=== PATIENT | male | born 1955 | race Caucasian/White ===

== ENCOUNTER 2024-01-07 14:22 | Inpatient (IN) | payer MEDICARE, OTHER, SELFPAY ==
[2024-01-02] VITALS (8 sets, daily range): BP systolic 104–159; BP diastolic 68–99; BMI 26.5
[2024-01-02 12:31] LABS: % Basophils 0.5 % (0-2); % Eosinophils 3.5 % (0-6); % Immature Granulocytes 0.2 % (0-0.5); % Lymphocytes 30.1 % (20.5-51.1); % Monocytes 10.1 % (1.7-9.3); % Neutrophils 55.6 % (42.2-75.2); Absolute Eosinophils 0.2 10^3/uL (0-0.7); Absolute Lymphocytes 1.8 10^3/uL (1.2-3.4); Absolute Monocytes 0.6 10^3/uL (0.1-0.6); Absolute Neutrophils 3.4 10^3/uL (1.4-6.5); Hematocrit 43.6 % (39.0-52.0); Hemoglobin 14.5 g/dL (13.0-18.0); Mean Corp Hgb Conc. 33.3 g/dL (33.0-37.0); Mean Corpuscular Hgb 30.1 pg (27.0-31.0); Mean Corpuscular Volume 90.6 fL (80.0-94.0); Mean Platelet Volume 10.2 fL (7.4-10.4); Nucleated Red Blood Cells % 0 % (-); Platelet Count 253 10^3/uL (130-400); Red Blood Cell Count 4.81 10^6/uL (4.70-6.10); Red Cell Dist. Width 12.8 % (11.5-14.5)
[2024-01-02 12:41] LABS: ALT (SGPT) 18 U/L (0-50); AST (SGOT) 21 U/L (17-59); Albumin 4.2 g/dl (3.5-5.0); Alkaline Phosphatase 54 U/L (38-126); Blood Urea Nitrogen 19 mg/dl (9-20); Calcium 9.7 mg/dl (8.4-10.2); Carbon Dioxide 30 mmol/L (22-30); Chloride 103 mmol/L (98-107); Glucose 122 mg/dl (70-99); Lipase 109 U/L (23-300); Potassium 4.6 mmol/L (3.5-5.1); Sodium 136 mmol/L (135-145); Total Bilirubin 0.7 mg/dl (0.2-1.3); eGFR > 60.00
[2024-01-02 12:52] LABS: Troponin I 0.028 ng/ml
--- NOTE | 2024-01-02 13:34 | ED.GENMED ---
History of Present Illness
General
Chief Complaint: Abdominal Symptoms
Source: patient
Exam Limitations: none
Time Seen by Provider: 01/02/24 11:26
Nursing documentation reviewed up to this point in time: agreed with
Travel History
Have you had any contact with someone who has COVID-19?: No
Do you have any symptoms of coronavirus? Fever > 100 degrees, chills, cough, shortness of breath, sore throat, loss of taste or smell, muscle aches, or headache?: No
History of Present Illness
History of Present Illness:
8-year-old male with history of wwh-pqwlhsr-navsvfvex diabetes, GERD for feeling of chest discomfort with exertion starting 1 week ago.
while mowing dc cappsn notice dhe got a pain in his chest felt like a pressure that required him to stop several times. He thinks he stopped a total of 7 times while he was mowing in order to recover. This is very unusual for him. Since then he
had another episode with walking that he had to stop 3 times because of a pressure in his chest associated with a few episodes of belching. Patient says he also had 1 last night at 1130, 3 hours after eating his dinner which is a small amount.
This happened at rest which was unusual and he was a little bit more concerned about that. Patient has not had any shortness of breath, pleuritic pain, fever, vomiting, black stool. Went to his family doctor and he was told he had a subtle
abnormality in his EKG and was sent here for evaluation. Patient has never had an endoscopy previously for his ongoing GERD symptoms, he says he has chronically had belching after meals but does not regularly take medications
Phy Exam
Physical Exam
Physical Exam:
GENERAL: Alert , in no apparent distress
EYE: pupils equal and reactive
NECK: Supple
ENT: o/p clr, mmm.
CARDIAC: Regular rate and rhythm .
LUNGS: Clear breath sounds bilaterally, no acute respiratory distress, no wheezes/rales/rhonchi
ABDOMEN: Soft, without focal tenderness, no r/g, no cvat, normal bowel sounds
NEUROLOGICAL: Alert and oriented, no focal neuro deficits
SKIN: Warm and dry, skin intact.
MUSCULOSKELETAL: No edema, well perfused. neg loreto's sign
PSYCH: Normal and appropriate interaction.
Course
Orders/Labs/Results
Orders:
Orders
01/02/24 10:59
EKG [Electrocardiogram (*1)] Urgent
Reason for Study: Abnormal EKG
01/02/24 11:00
EKG- Treatment ONCE
01/02/24 12:14
Complete Blood Count/With Diff Urgent
Comprehensive Metabolic Panel Urgent
Glycohemoglobin (HgbA1c) Urgent
Lipase Urgent
Troponin I Urgent
01/02/24 12:51
CR Chest - 2 Views Urgent
Comment:
Reason For Exam: chest pain
01/02/24 14:14
CARDIOLOGY CONSULT Urgent
Consulting Provider: Mariano Jacob
Was physician already notified: Yes
01/02/24 14:26
Aspirin Chewable [Low Strength Aspirin] 324 mg PO NOW STA
01/02/24 14:27
Add On- LAB Routine
Tests Added?: Hgba1c
01/02/24 14:32
Echo 2D MMode Color/Doppler Routine
Reason for Study: Chest pain
Abnormal Lab Results
01/02/24
12:14
Monocytes % 10.1 H %
(1.7-9.3)
Glucose 122 H mg/dl
(70-99)
01/02/24 12:14
01/02/24 12:14
Vital Signs
Initial and Last Documented VS:
Initial Vital Signs
Temp Pulse Resp BP Pulse Ox
98.1 F 75 18 159/99 98
01/02/24 11:11 01/02/24 11:11 01/02/24 11:11 01/02/24 11:11 01/02/24 11:11
Last Documented Vital Signs
Temp Pulse Resp BP Pulse Ox
98.1 F 71 18 123/80 98
01/02/24 11:11 01/02/24 14:00 01/02/24 14:00 01/02/24 14:00 01/02/24 11:11
MDM/Problems Addressed
Differential Diagnosis Includes:
gerd, acs, unstable angina
MDM/Problems Addressed:
68 y/o M with niddm, gerd
here with exretional chest disocmfort 1 wek ago and has had 2 other episodes of discomfrt, 1 with walking and the other last night at rest
he attributes to food intake, becuase he gets belchin as a symptom
but he has a change to his ekg that is subtle but t wave inversion
no pain currently
never seen gi
on exam well appearing
stable vitals
troponin was 0.02
d/w ed attending
recommended consult final cleaner
dr. jacob saw pt and will take pt to cardiac cath.
*Critical Care Note
Total Time (30-74mins, 75-104mins- exclusive of procedures): Not Applicable
ED Attending Note
-
Portions of this chart may have been created with voice recognition software.� Occasional wrong word or��sound alike� substitutions may have occurred due to the inherent limitations of voice recognition software.
Discharge Plan
Departure
Patient Disposition: Admit
Date of Disposition: 01/02/24
Time of Disposition: 14:48
Admit to: Telemetry
Presentation/result/management discussed w/ accepting MD/DO: Hospitalist
Condition: Fair
Covid-19: Not Applicable
Discharge Problem:
Angina of effort
Referrals:
Pauline Rangel PA-C [Family Provider] -
Interventions
Interventions:
*Risk Screen - Suicide Last Done: 01/02/24 11:15
*General Assessment Last Done: 01/02/24 11:15
*Neglect/Abuse Screening Last Done: 01/02/24 11:15
ED- Fall Risk Assessment Last Done: 01/02/24 12:22
OT-Prrmlg-Ejsnlvndmy Assessment Last Done: 01/02/24 12:22
Discharge Date and Time
Print Language: MALAWIAN
--- NOTE | 2024-01-02 14:18 | CON.CAR ---
Addendum entered and electronically signed by Mariano Lee MD 01/02/24 16:57:
Patient seen and examined in collaboration with B2B APPOINTMENT SETTER; agree with below.
-68-year-old male with hyperlipidemia and diabetes presenting with symptoms highly concerning for angina; the patient had to stop 7 times while fertilizing his lawn due to his symptoms that went away with rest and was brought about by exertion.
-Patient was also found to have new inferior T wave inversions on his EKG.
-Case discussed with interventional cardiology; patient will undergo cardiac catheterization today for definitive coronary assessment.
-Will be given full-dose aspirin and heparin bolus in the ER.
-Continue atorvastatin.
-Will need an echocardiogram this admission.
-Further recommendations will be based upon cardiac catheterization findings.
Original Note:
Consultation
Consultation Request
Date/Time Consultation Requested: 01/02/2024 14:15
Date/Time Consultation Performed: 01/02/2024 14:20
Requesting Provider: TOBI Mabry
Performing Provider: TOBI Figueroa for Dr. Lee
Reason for Consultation: Chest discomfort
Medical History
-
Chief Complaint: Chest discomfort
History of Present Illness:
Kaveh Lozano is a 68-year-old male with type 2 diabetes mellitus and dyslipidemia who presented to the emergency department after referral from PCP. He presented to the office of his PCP today to discuss ongoing indigestion. Last week he had to
stop fertilizing his lawn multiple times due to belching and a chest discomfort which she cannot describe. He reports having a history of ongoing digestive issues for 8 years. He has been actively trying to avoid spicy food, eating late, and
eating before workout. He normally exercises 3 times per week but feels more fatigued when he exercises in the evening and has belching and chest discomfort despite not eating before his workout. His indigestion symptoms are sometimes with
exertional activity such as walking up a flight of steps unloading the car. He feels like he needs to relax his breathing but does not feel particularly short of breath. At his PCP office he was found to have new T wave inversion and was referred
to the emergency department. He did have some indigestion symptoms at rest, most recently he was driving in his vehicle and attributed to [employer] he had for breakfast.
Past Medical History
Past Medical History: Hypercholesterolemia and NIDDM
Past Surgical History: Appendectomy and Orthopedic
Social History
Tobacco: Non-Smoker
Alcohol: None
Drug: None
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
Family History
Family History: Reviewed & Not Pertinent
Allergies / Home Medications
Allergy/AdvReac Type Severity Reaction Status Date / Time
No Known Allergies Allergy Unverified 01/02/24 11:11
Review of Systems
-
History Source: Patient
All other systems: Negative unless noted
Constitutional: No Symptoms
Respiratory: No Symptoms
Cardiac: Chest Pain
Abdomen/GI: Other (See HPI)
: No Symptoms
Physical Exam
Vital Signs
Temp Pulse Resp BP Pulse Ox
98.1 F 71 18 123/80 98
01/02/24 11:11 01/02/24 14:00 01/02/24 14:00 01/02/24 14:00 01/02/24 11:11
Lab Results
01/02/24 12:14
01/02/24 12:14
Troponin I 0.028 ng/ml 01/02/24 12:14
Physical Exam
General: Well Developed, Well Nourished, No Apparent Distress and Comfortable
HEENT: Normocephalic, Anicteric and Moist Mucous Membranes
Respiratory: Non Labored Respirations
Cardiac: S1/S2 and Regular Rhythm; Negative Peripheral Edema
Breast: Deferred by me
GI: Soft, Non Tender, Non Distended and Normal Bowel Sounds
Rectal: Deferred by Provider
Genito-urinary: No Costovertebral Tender
Musculoskeletal: No Clubbing, No Cyanosis and No Edema
Skin: Warm and Dry
Neuro: AO x 3
Hematologic/Lymphatic: No Lymphadenopathy
Psych: Calm
Impression / Plan
-
ACS
-Currently chest pain-free
-Troponin 0.028, trend
-Give ASA 324 mg chewable tablet x 1 now
-HbA1c, fasting lipid panel a.m.
-Echocardiogram
-Cardiac catheterization given chest discomfort and new T wave inversions
Dyslipidemia, most recent LDL 93 at its peak was 147 in 2020, increase rosuvastatin to 20 mg daily
Type 2 diabetes mellitus, HgbA1c 6.6% 09/2023, update, hold metformin for cardiac catheterization
Data Reviewed
-
EKG: Report Reviewed by me (Sinus rhythm, nonspecific ST abnormality, new T wave inversion in inferior leads, rate 70)
Labs: Labs Reviewed by me
Old Records: Reviewed
[2024-01-02] MEDS: LOW STRENGTH ASPIRIN 324 MG PO (14:43)
[2024-01-02 14:56] LABS: Glycohemoglobin (HgbA1c) 7.1 % (4.0-5.6)
--- NOTE | 2024-01-02 15:05 | HPS.HSE ---
Family Physician
-
Family Physician: Pauline Rangel PA-C
Chief Complaint
-
Chest pain
History of Present Illness
68M NIDDM HLD referred to ED by PCP d/t EKG changes, worsening chest discomfort, exercise intolerance, fatigue, progressive for the past few weeks. Chest discomfort was associate with belching and was attributed to indigestion, of which patient has
had for years. However symptoms acutely worsen over the past few weeks with progressive limitations on patients' routine activities including exercise, yard work, walking up a flight of stairs while unloading his car. PCP evaluated with EKG and
noted T wave inversions different from patient's prior EKG prompting referral to ED. In ED patient was asymptomatic vital signs stable chest pain free at rest with initial troponin wnl. Repeated EKG noted T wave inversions in inferior leads.
Cardio evaluated and cath was advised. The procedure would ultimately find multivessel disease.
Medical History
Past Medical History
Past Medical History: Reports Other (as above)
Past Surgical History: Reports Other
Additional Past Surgical History:
Appendectomy Orthopedic
Social History
Tobacco: Non-smoker
Alcohol: None
Drug: None
Personal:
Living: With Family
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
Family History
Family History: CAD (Hx heart disease late in 70s and 80s, Father and Grandfather on his mother's side respectively) and Other (Endorses family history of heart disease, father with valve replacement in his 70s and grandfather on his mother side who
had heart attack in his 80s. )
Allergies / Home Medications
Allergies reflects when Allergies were last updated in [facility].
Home Medications with original date entered in [facility]
Allergy/Medication List:
Allergies
Allergy/AdvReac Type Severity Reaction Status Date / Time
amoxicillin [From Augmentin] Allergy Unknown Verified 01/02/24 15:05
clavulanic acid Allergy Unknown Verified 01/02/24 15:05
[From Augmentin]
Home Medications
metformin 500 mg tablet 500 mg PO BIDWMEAL 01/02/24
rosuvastatin 5 mg tablet 5 mg PO Q72H 01/02/24
Review of Systems
-
A 12 point ROS was completed and negative except as noted: Yes
Constitutional: Reports Other (as below)
Physical Exam
Vital Signs
Vital Signs
Temp Pulse Resp BP Pulse Ox
98.1 F 71 17 146/97 98
01/02/24 11:11 01/02/24 14:45 01/02/24 14:45 01/02/24 14:40 01/02/24 11:11
Physical Exam
General: Other (as below)
Laboratory Results
-
01/02/24 12:14
01/02/24 12:14
Laboratory Results
Total Bilirubin 0.7 mg/dl (0.2-1.3) 01/02/24 12:14
AST 21 U/L (17-59) 01/02/24 12:14
ALT 18 U/L (0-50) 01/02/24 12:14
Alkaline Phosphatase 54 U/L (38-126) 01/02/24 12:14
Troponin I 0.028 ng/ml 01/02/24 12:14
Lipase 109 U/L (23-300) 01/02/24 12:14
Impression/Plan
-
ROS
General: Denies fever chills night sweats unexpected weight loss
Neuro: Denies seizure shaking loss of consciousness dizziness vertigo
Psych: denies depression hallucinations confusion manic episodes
Endocrine: Denies polyuria polydipsia polyphagia heat/cold intolerance
HEENT: Denies blindness visual disturbances epistaxis
Pulmonary: denies coughing hemoptysis sneezing sob dyspnea on exertion
Cardiovascular: reports chest discomfort with associate belching palpitations leg swelling
Hematology: denies signs symptoms of anemia easy bruising/bleeding
Gastrointestinal: denies nausea vomiting diarrhea constipation hematemesis hematochezia melena
Genito-Urinary: denies retention incontinence dysuria
Musculoskeletal: denies joint pain weakness
Dermatology: denies rash laceration bruising
Physical Exam
General: No pallor, cyanosis, or jaundice.
HEENT: Throat clear. PERRLA Normocephalic atraumatic
NECK: Supple. No JVD Carotid Bruits
RESPIRATORY: Lungs clear to auscultation. No crackles wheezes stridor
CVS: S1, S2 normal. RRR. No murmur, rub or gallop.
ABDOMEN: Soft, non-tender. No distension. BS+/normal.
EXTREMITIES: No peripheral cyanosis or edema.
TAKER DOWN: AOx3. No focal deficits.
IMPRESSION:
66M NiDDM HLD p/w atypical chest pain exercise intolerance progressive past few weeks found to have multi-vessel disease on cath.
PLAN:
#Atypical chest pain s/p cath 01/01 notes multi-vessel CAD
Cardio eval appreciated
monitoring and evaluation advisor
ASA hep gtt as per cardio
CTS eval
#DM
metformin on hold d/t cath
insulin low dose sliding scale
#HLD
statin
dvt ppx hep gtt
meds reconciled and resumed as appropriate
Full Code
I spent a total of 80 minutes with the patient or on the floor. More than 50% of this time involved counseling and coordination of care.
--- NOTE | 2024-01-02 16:13 | ITS.CL.CATH ---
Client Architect - Catheterization
Cardiac Catheterization
Procedure Report:
CARDIAC CATHETERIZATION REPORT
Date of Procedure: 01/02/2024
Referring: Mariano Lee MD
Indication: Unstable angina
HEMODYNAMIC DATA
AO: 108/72
LV: 108/14
LEFT VENTRICULOGRAPHY: Mild inferobasal hypokinesis with EF 52%
CORONARY ANGIOGRAPHY
Dominance: Right
Left Main: Severely calcified without focal stenosis
LAD: Eccentric 70-80% proximal LAD stenosis. There is calcific 50% stenosis spanning the takeoff of the large second septal feather drying machine operator which has 70% ostial stenosis. The remainder of the LAD proper has mild luminal disease. D1 is large and
occluded at its origin-this vessel fills retrograde. D2 is large with 60% ostial stenosis.
Circumflex: The circumflex is occluded proximally distal to the origin of high rising small OM1 and OM 2 branches. OM 3 is a large bifurcating vessel which fills retrograde via left to left collaterals.
RCA: The RCA is severely calcified and proximally occluded. The distal vessel fills via a combination of qjsz-qd-okzdp collaterals and bridging collaterals from the RCA. There appears to be a sizable PDA and several posterolateral branches
supplied by these collaterals
Closure Device: None-the procedure was performed via the right radial artery. The Delvin's test was normal prior to the procedure.
Radiation (mGy): 377
DAP (cm2.Gy): 33.4
Fluoroscopy time: 3.3 minutes
CONCLUSIONS
1: Mild inferobasal hypokinesis with EF 52%
2: Severe calcific triple-vessel CAD as described
3. There is no option for percutaneous revascularization here. Complete revascularization may be challenging but would include grafting the LAD, large D1 and D2, OM 3, RPDA and RPL. The PDA is not well-visualized and may or may not be an
acceptable surgical target. One of the large posterolateral branches will certainly be a surgical target
Copy to: Mariano Lee MD, Pauline Rangel PA-C
Flex Lucio MD, FORMERLY [facility], [facility]
[2024-01-02] MEDS: NSS 1000 IV (16:29)
--- NOTE | 2024-01-02 16:45 | CM ---
CM following for DC planning needs.
Pt. resides in a private, 2 story home w/ spouse.
Functionally, patient indep. prior to admission w/ ADLs, mobility without use of any assisted device.
CM to follow for DC planning needs.
--- NOTE | 2024-01-02 17:42 | CONSULT.CT ---
Consultation
-
Date/Time Consultation Requested: 01/01
Date/Time Consultation Performed: 01/01
Requesting Provider: Dr Lucio
Performing Provider: Emiliana Montano for Dr Fernando Mcdaniel
Reason for Consultation: CABG evaluation
Patient History
Physicians
Family Physician: Pauline Rangel
Outpatient Group Art Supervisor: none prior to admission
Inpatient Group Art Supervisor: DR. Lucio
History of Present Illness
79 year old male with history of T2DM x 8 years and hyperlipidemia in usual active state of health (exercising 4 times/week), noted needing to stop and belch during stationary bike riding over past several years which he attributed to
digestive issues. Yesterday, patient had to stop 7 times while fertilizing his lawn due to vague chest tightness and belching that resolved with rest. Patient also recounts an episode last night, which occurred 3 hours after eating. Went to PCP
today and ECG noted new inferior T wave inversions. Patient told to go to the ED for further evaluation. Initial troponin was 0.028. TTE reported normal EF with cath revealing multivessel disease. Patien tis anxious to have surgery so he can attend
his daughter's wedding in [facility] on 01/25/24.
TTE:
EF 55-60%. No /AI. tr MR, mild TR
Cardiac Cath (via R radial): report pending
Past Medical History
Past Medical History: BPH, Hypercholesterolemia and NIDDM (x 8 years on oral meds)
Past Surgical History
Past Surgical History: Appendectomy and Other (cervical fusion, benign LUE lipoma removal)
Family History
Mother: at Age
Father: at Age (83-had valve surgery)
Family Medical History: CAD
Social History
Alcohol: None
Drug: None
Tobacco: Non-Smoker
Personal:
Living: With Spouse
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
Allergies
Allergy/AdvReac Type Severity Reaction Status Date / Time
amoxicillin [From Augmentin] Allergy Unknown Verified 01/02/24 15:05
clavulanic acid Allergy Unknown Verified 01/02/24 15:05
[From Augmentin]
Home Medications
�Medication �Instructions �Recorded �Confirmed �Type
metformin 500 mg tablet 500 mg PO BIDWMEAL 01/02/24 01/02/24 History
rosuvastatin 5 mg tablet 5 mg PO Q72H 01/02/24 01/02/24 History
Review of Systems
-
History Source: Patient
General: Reports No Symptoms
HEENT: Reports No Symptoms
Respiratory: Reports No Symptoms
Cardiac: Reports Chest Pain
Abdomen/GI: Reports No Symptoms
: Reports Nocturia
Musculoskeletal: Reports No Symptoms
Skin: Reports No Symptoms
Neurological: Reports No Symptoms
Vascular: Reports No Symptoms
Physical Exam
Vital Signs
Temp 98.1 F 01/02/24 11:11
Temp route: Oral 01/02/24 11:11
Pulse 66 01/02/24 17:30
Resp Rate 19 01/02/24 15:15
Blood pressure 114/68 01/02/24 17:28
MAP (cuff-Shayla Monitor) 81 01/02/24 17:28
SaO2 97 01/02/24 17:28
Oxygen Mode of Delivery Room air 01/02/24 11:11
Acceptable pain level during hospitalization? 0 01/02/24 11:11
Can the patient verbally communicate their pain? Yes 01/02/24 11:11
Actual Weight 96.1 kg 01/02/24 14:39
Body Mass Index (BMI) 26.5 01/02/24 14:39
Labs
01/02/24 12:14
01/02/24 12:14
Hemoglobin A1c 7.1 % (4.0-5.6) H 01/02/24 12:14
Troponin I 0.028 ng/ml 01/02/24 12:14
Exam
General: Well Developed, Well Nourished and No Apparent Distress
HEENT: Normocephalic, Anicteric, Moist Mucous Membranes and PERRLA
Neck: Trachea Midline
Respiratory: Clear
Cardiac: S1/S2 and Regular Rhythm
GI: Soft, Non Tender, Non Distended and Normal Bowel Sounds
Rectal: Deferred by Provider
Skin: Warm and Dry
Neuro: AO x 3, No Motor Deficits and CN X-XII Intact
Extremities: Pulses (+2/4 DP pulses B/L)
Lymph: No Lymphadenopathy
Psych: Calm
Assessment / Plan
-
68 year old male with multivessel CAD and preserved LV function
- surgeon to review imaging and discuss surgical option with patient
- plan for CABG with Dr Mcdaniel on Saturday 01/06
- diagnostic work-up in process
- DC IV Heparin on -call to OR
Data Reviewed
-
EKG: Report Reviewed by me and Discussed with Physician
Marketing Sales Supervisor: Report Reviewed by me and Discussed with Physician
Echo: Report Reviewed by me and Discussed with Physician
Labs: Labs Reviewed by me and Discussed with Physician
[2024-01-02 18:38] LABS: Glucose - Point of Care 100 mg/dl (70-99)
[2024-01-02] MEDS: LIPITOR 40 MG PO (19:06)
[2024-01-02] MEDS: NITRO-BID 0.5 INCH TOPICAL ×2 (19:08→23:05)
[2024-01-02] MEDS: LOPRESSOR 12.5 MG PO (19:49)
[2024-01-02] MEDS: HEPARIN 25000 UNITS/250 ML IV (21:01)
[2024-01-02 21:03] LABS: Glucose - Point of Care 159 mg/dl (70-99)
[2024-01-03] VITALS (7 sets, daily range): BP systolic 90–119; BP diastolic 54–72; BMI 25.8
[2024-01-03 03:18] LABS: Hematocrit 41.2 % (39.0-52.0); Hemoglobin 14.3 g/dL (13.0-18.0); Mean Corp Hgb Conc. 34.7 g/dL (33.0-37.0); Mean Corpuscular Volume 89.4 fL (80.0-94.0); Mean Platelet Volume 10.1 fL (7.4-10.4); Platelet Count 237 10^3/uL (130-400); Red Blood Cell Count 4.61 10^6/uL (4.70-6.10); Red Cell Dist. Width 12.9 % (11.5-14.5); White Blood Cell Count 9.1 10^3/uL (4.8-10.8)
[2024-01-03 03:31] LABS: APTT 38.7 Sec (23.4-35.0); INR 1.12; PT 14.3 Sec (11.4-14.6)
[2024-01-03 03:35] LABS: ALT (SGPT) 15 U/L (0-50); AST (SGOT) 21 U/L (17-59); Alkaline Phosphatase 55 U/L (38-126); Blood Urea Nitrogen 17 mg/dl (9-20); Calcium 9.4 mg/dl (8.4-10.2); Carbon Dioxide 26 mmol/L (22-30); Chloride 104 mmol/L (98-107); Direct Bilirubin 0.3 mg/dl (0.0-0.4); Estimated Creatinine Clearance 109 ml/min; Glucose 122 mg/dl (70-99); Magnesium 1.9 mg/dl (1.6-2.3); Potassium 4.1 mmol/L (3.5-5.1); Sodium 136 mmol/L (135-145); Total Protein 6.5 g/dl (6.3-8.2); eGFR > 60.00
[2024-01-03] MEDS: NITRO-BID 0.5 INCH TOPICAL ×3 (05:59→19:24)
--- NOTE | 2024-01-03 06:40 | W.PN.HOSP.TC ---
Today's Communication/Plan
-
Cont ASA hep gtt
low dose sliding scale
CABG preparations pre-op work up as per CTS
Assessment / Plan
Assessment / Plan
Physical Exam
General: No pallor, cyanosis, or jaundice.
HEENT: Throat clear. PERRLA Normocephalic atraumatic
NECK: Supple. No JVD Carotid Bruits
RESPIRATORY: Lungs clear to auscultation. No crackles wheezes stridor
CVS: S1, S2 normal. RRR. No murmur, rub or gallop.
ABDOMEN: Soft, non-tender. No distension. BS+/normal.
EXTREMITIES: No peripheral cyanosis or edema.
ALARM MECHANISM ADJUSTER: AOx3. No focal deficits.
IMPRESSION:
66M NiDDM HLD p/w atypical chest pain exercise intolerance progressive past few weeks found to have multi-vessel disease on cath.
PLAN:
#Atypical chest pain s/p cath 01/01 notes multi-vessel CAD
Cardio eval appreciated
lockstitch collar setter
ASA atorvastatin hep gtt metoprolol nitrobid as per cardio
CTS eval appreciated plan for CABG w/ Dr Mcdaniel Wed 01/06
ECHO appreciated EF 55-60% possible basal inferior/inferolateral hypokineses, aortic sclerosis w/ stenosis, mildly dilated aortic root
#DM
metformin on hold d/t cath
insulin low dose sliding scale
#HLD
statin
dvt ppx hep gtt
Full Code
I spent a total of 50 minutes with the patient or on the floor. More than 50% of this time involved counseling and coordination of care.
Anticipated Discharge: > 48 hours
Subjective/Interval History
-
Date of Service: January 03, 2024
No acute distress reports overall feeling well. Denies new acute issues at this time.
Objective Data
-
Labs:
Laboratory Results
01/03/24 01/03/24 01/03/24
03:08 03:08 03:08
WBC 9.1
Hgb 14.3
Hct 41.2
Plt Count 237
PT Cancelled 14.3
INR Cancelled 1.12
APTT 38.7 H
Sodium 136
Potassium 4.1
Chloride 104
Carbon Dioxide 26
BUN 17
Creatinine 0.8
Glucose 122 H
Calcium 9.4
Total Bilirubin 1.0
AST 21
ALT 15
Alkaline Phosphatase 55
01/03/24
10:00
WBC
Hgb
Hct
Plt Count
PT
INR
APTT Pending
Sodium
Potassium
Chloride
Carbon Dioxide
BUN
Creatinine
Glucose
Calcium
Total Bilirubin
AST
ALT
Alkaline Phosphatase
Vital Signs:
Vital Signs
Temp Pulse Resp BP Pulse Ox
97.8 F 66 16 109/54 96
01/03/24 03:53 01/03/24 05:59 01/03/24 03:53 01/03/24 05:59 01/02/24 19:38
I&O
01/01/24 01/02/24 01/03/24
06:59 06:59 06:59
Intake Total 432 / 432
Output Total 450 / 450
Balance -18 / -18
[2024-01-03 07:56] LABS: Glucose - Point of Care 130 mg/dl (70-99)
[2024-01-03 09:32] LABS: HDL Cholesterol 42 mg/dl; LDL Cholesterol, Calculated 81 mg/dl; Total Cholesterol 139 mg/dl (50-199); Triglyceride 80 mg/dl (10-149); Very Low Density Lipoprotein 16 mg/dl (0-30)
[2024-01-03] MEDS: LOPRESSOR 12.5 MG PO ×2 (10:11→19:59)
[2024-01-03] MEDS: LOW STRENGTH ASPIRIN 81 MG PO (10:11)
[2024-01-03 10:44] LABS: APTT 45.5 Sec (23.4-35.0)
[2024-01-03 11:52] LABS: Glucose - Point of Care 124 mg/dl (70-99)
--- NOTE | 2024-01-03 13:59 | W.PN.CD ---
Today's Communication / Plan
-
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
-Echocardiogram yesterday revealed LVEF of 55-60%, with possible basal inferior/inferolateral hypokinesis and aortic sclerosis without stenosis.
-Continue aspirin, atorvastatin 40 mg daily, metoprolol tartrate, and heparin drip.
-Continue youth nutritional monitor.
Impression / Plan
-
ACS/CAD:
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
-Echocardiogram yesterday revealed LVEF of 55-60%, with possible basal inferior/inferolateral hypokinesis and aortic sclerosis without stenosis.
-Continue aspirin, atorvastatin 40 mg daily, metoprolol tartrate, and heparin drip.
-Continue youth nutritional monitor.
Dyslipidemia.
-LDL 81; continue statin as above.
Type 2 diabetes mellitus;
-Hemoglobin A1c is 7.1%.
-Management as per primary team.
Physical Exam
Vital Signs/Labs
Vital Signs
Temp Pulse Resp BP Pulse Ox
98.0 F 76 18 99/69 97
01/03/24 11:53 01/03/24 12:00 01/03/24 11:55 01/03/24 11:53 01/03/24 11:55
01/02/24 01/03/24 01/04/24
06:59 06:59 06:59
Actual Weight 96.1 kg 93.5 kg
01/03/24 03:08
01/03/24 03:08
PT 14.3 Sec (11.4-14.6) 01/03/24 03:08
PT Cancelled 01/03/24 03:08
INR 1.12 01/03/24 03:08
INR Cancelled 01/03/24 03:08
APTT 45.5 Sec (23.4-35.0) H 01/03/24 10:18
Magnesium 1.9 mg/dl (1.6-2.3) 01/03/24 03:08
Triglycerides 80 mg/dl (10-149) 01/03/24 03:08
LDL Cholesterol, Calc 81 mg/dl 01/03/24 03:08
VLDL Cholesterol, Calc 16 mg/dl (0-30) 01/03/24 03:08
HDL Cholesterol 42 mg/dl 01/03/24 03:08
LAB Results
01/02/24
12:14
Troponin I 0.028
Physical Exam
Constitutional: No acute distress and Comfortable
EENT: Anicteric
Cardiovascular: Rhythm & rate is regular, Pedal edema is absent, Systolic murmur absent and S1S2 is normal
Respiratory: Respiratory effort normal and Lungs clear to auscul.
GI: Soft and Non tender
Neuro/Psych: AO x 3
Other: Skin (Warm, dry, intact)
Data Reviewed
-
Date of Service: January 03, 2024
EKG: Tracing Personally Visualized and interpreted (Telemetry: Sinus rhythm)
Medical Tests (PFT, Pathology etc): Discussed with Patient
Labs: Labs Reviewed by me
[2024-01-03] MEDS: HEPARIN 25000 UNITS/250 ML IV (17:04)
[2024-01-03] MEDS: LIPITOR 40 MG PO (17:05)
[2024-01-03 18:09] LABS: Glucose - Point of Care 98 mg/dl (70-99)
[2024-01-03 19:15] LABS: APTT 55.2 Sec (23.4-35.0)
[2024-01-03 21:53] LABS: Glucose - Point of Care 151 mg/dl (70-99)
[2024-01-03 22:24] LABS: Hepatitis C Antibody Negative (Negative)
[2024-01-04 01:23] VITALS: BP 122/79
[2024-01-04] MEDS: NITRO-BID 0.5 INCH TOPICAL ×4 (01:25→17:11)
[2024-01-04 01:40] LABS: Hematocrit 40.6 % (39.0-52.0); Hemoglobin 14.3 g/dL (13.0-18.0); Mean Corp Hgb Conc. 35.2 g/dL (33.0-37.0); Mean Corpuscular Hgb 30.4 pg (27.0-31.0); Mean Corpuscular Volume 86.2 fL (80.0-94.0); Mean Platelet Volume 9.9 fL (7.4-10.4); Platelet Count 249 10^3/uL (130-400); Red Blood Cell Count 4.71 10^6/uL (4.70-6.10); Red Cell Dist. Width 12.9 % (11.5-14.5); White Blood Cell Count 8.5 10^3/uL (4.8-10.8)
[2024-01-04 01:53] LABS: APTT 89.7 Sec (23.4-35.0)
[2024-01-04 06:00] VITALS: BMI 25.8
[2024-01-04 06:14] VITALS: BP 110/52
--- NOTE | 2024-01-04 06:43 | W.PN.HOSP.TC ---
Today's Communication/Plan
-
Cont ASA hep gtt
low dose sliding scale
CABG preparations pre-op work up as per CTS
Assessment / Plan
Assessment / Plan
Physical Exam
General: No pallor, cyanosis, or jaundice.
HEENT: Throat clear. PERRLA Normocephalic atraumatic
NECK: Supple. No JVD Carotid Bruits
RESPIRATORY: Lungs clear to auscultation. No crackles wheezes stridor
CVS: S1, S2 normal. RRR. No murmur, rub or gallop.
ABDOMEN: Soft, non-tender. No distension. BS+/normal.
EXTREMITIES: No peripheral cyanosis or edema.
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 No focal deficits.
IMPRESSION:
66M NiDDM HLD p/w atypical chest pain exercise intolerance progressive past few weeks found to have multi-vessel disease on cath.
PLAN:
#Atypical chest pain s/p cath 01/01 notes multi-vessel CAD
Cardio eval appreciated
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
ASA atorvastatin hep gtt metoprolol nitrobid as per cardio
CTS eval appreciated plan for CABG w/ Dr Mcdaniel Wed 01/06
ECHO appreciated EF 55-60% possible basal inferior/inferolateral hypokineses, aortic sclerosis w/ stenosis, mildly dilated aortic root
Urinalysis suggestive Benign Bacteriuria
No UTI symptoms
pending Urine Cx, possibly will require prophylactic abx treatment for upcoming CABG
#DM
A1c 7.1
metformin held d/t cath
insulin low dose sliding scale
sugars relatively well controlled at this time
#HLD
statin
LDL 81 goal <70 d/t CAD
dvt ppx hep gtt
Full Code
I spent a total of 50 minutes with the patient or on the floor. More than 50% of this time involved counseling and coordination of care.
Anticipated Discharge: > 48 hours
Subjective/Interval History
-
Date of Service: January 04, 2024
No acute distress. reports feeling well. Denies dysuria Fever leg cramps. Tolerating statin well. (home rosuvastatin was every three days due to leg cramps not seen here with atorvastatin).
Objective Data
-
Labs:
Laboratory Results
01/03/24 01/04/24 01/04/24
18:50 01:24 07:30
WBC 8.5
Hgb 14.3
Hct 40.6
Plt Count 249
APTT 55.2 H 89.7 H Pending
Vital Signs:
Vital Signs
Temp Pulse Resp BP Pulse Ox
98 F 75 18 110/52 95
01/04/24 01:27 01/04/24 06:14 01/04/24 01:27 01/04/24 06:14 01/04/24 01:27
I&O
01/02/24 01/03/24 01/04/24
06:59 06:59 06:59
Intake Total 432 / 432 1440 / 1440
Output Total 450 / 450
Balance -18 / -18 1440 / 1440
[2024-01-04 07:51] VITALS: BP 108/70
[2024-01-04 08:00] LABS: Glucose - Point of Care 141 mg/dl (70-99)
[2024-01-04] MEDS: LOPRESSOR 12.5 MG PO ×2 (08:56→20:30)
[2024-01-04] MEDS: LOW STRENGTH ASPIRIN 81 MG PO (08:56)
[2024-01-04] MEDS: MIRALAX 17 GRAMS PO (08:59)
[2024-01-04] MEDS: HEPARIN 25000 UNITS/250 ML IV (09:56)
[2024-01-04 10:27] LABS: APTT 86.7 Sec (23.4-35.0)
[2024-01-04 10:28] LABS: Urine Albumin Negative (Neg - Trace); Urine Bilirubin Negative (Negative); Urine Character Clear (Clear); Urine Color Yellow; Urine Glucose 1+ (Negative); Urine Ketone Trace (Negative); Urine Leukocyte 2+ (Negative); Urine Nitrite Negative (Negative); Urine Occult Blood 1+ (Negative); Urine Specific Gravity 1.015 (<1.030); Urine Urobilinogen Negative (Neg - 1+)
[2024-01-04 10:43] LABS: Urine Bacteria Many (Negative); Urine Red Blood Cell 0-2 /HPF (0-2); Urine White Cell 40-50 /HPF (0-5)
--- NOTE | 2024-01-04 10:53 | PTCARENOTE ---
Assumed care of pt from night RN. Pt received awake and alert, Ox3, VSS. CM shows NSR 80's, POX 99% on RA. Heparin drip infusing at 1600 u/hr, 2nd therapeutic PTT level obtained. U/A obtained and sent to lab. Pt ambulating in hallway
frequently, plans is for CABG on Friday.
[2024-01-04 11:46] VITALS: BP 108/67
[2024-01-04 11:51] LABS: Glucose - Point of Care 130 mg/dl (70-99)
[2024-01-04 15:49] VITALS: BP 115/70
--- NOTE | 2024-01-04 16:04 | W.PN.CD ---
Today's Communication / Plan
-
-Plan is for patient to undergo CABG on 01/07/2024.
-Continue aspirin, atorvastatin 40 mg daily, metoprolol tartrate, and heparin drip.
-Continue hearing screen coordinator.
Impression / Plan
-
ACS/CAD:
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
-Plan is for patient to undergo CABG on 01/07/2024.
-Echocardiogram revealed LVEF of 55-60%, with possible basal inferior/inferolateral hypokinesis and aortic sclerosis without stenosis.
-Continue aspirin, atorvastatin 40 mg daily, metoprolol tartrate, and heparin drip.
-Continue hearing screen coordinator.
Dyslipidemia.
-LDL 81; continue statin.
Type 2 diabetes mellitus;
-Hemoglobin A1c is 7.1%.
-Management as per primary team.
Subjective:
No major events overnight. No cardiac complaints this a.m. Denies chest pain or shortness of breath.
Physical Exam
Vital Signs/Labs
Vital Signs
Temp Pulse Resp BP Pulse Ox
98.7 F 70 16 108/70 97
01/04/24 11:50 01/04/24 12:00 01/04/24 11:50 01/04/24 11:52 01/04/24 11:50
01/03/24 01/04/24 01/05/24
06:59 06:59 06:59
Actual Weight 96.1 kg 93.5 kg
01/04/24 01:24
01/03/24 03:08
PT 14.3 Sec (11.4-14.6) 01/03/24 03:08
PT Cancelled 01/03/24 03:08
INR 1.12 01/03/24 03:08
INR Cancelled 01/03/24 03:08
APTT 86.7 Sec (23.4-35.0) H 01/04/24 10:06
Magnesium 1.9 mg/dl (1.6-2.3) 01/03/24 03:08
Triglycerides 80 mg/dl (10-149) 01/03/24 03:08
LDL Cholesterol, Calc 81 mg/dl 01/03/24 03:08
VLDL Cholesterol, Calc 16 mg/dl (0-30) 01/03/24 03:08
HDL Cholesterol 42 mg/dl 01/03/24 03:08
LAB Results
01/02/24
12:14
Troponin I 0.028
Physical Exam
Constitutional: No acute distress and Comfortable
EENT: Anicteric
Cardiovascular: Rhythm & rate is regular, Pedal edema is absent, Systolic murmur absent and S1S2 is normal
Respiratory: Respiratory effort normal and Lungs clear to auscul.
GI: Soft
Neuro/Psych: AO x 3
Other: Skin (Warm, dry, intact)
Data Reviewed
-
Date of Service: January 04, 2024
EKG: Tracing Personally Visualized and interpreted (Telemetry: Sinus rhythm)
Medical Tests (PFT, Pathology etc): Discussed with Patient
Labs: Labs Reviewed by me
[2024-01-04 17:08] LABS: Glucose - Point of Care 107 mg/dl (70-99)
[2024-01-04] MEDS: LIPITOR 40 MG PO (17:11)
[2024-01-04 20:28] VITALS: BP 98/72
[2024-01-04 22:01] LABS: Glucose - Point of Care 121 mg/dl (70-99)
[2024-01-05] VITALS (8 sets, daily range): BP systolic 92–123; BP diastolic 64–97
[2024-01-05] MEDS: NITRO-BID 0.5 INCH TOPICAL ×5 (00:03→23:18)
[2024-01-05] MEDS: HEPARIN 25000 UNITS/250 ML IV ×2 (00:06→15:57)
--- NOTE | 2024-01-05 00:36 | PTCARENOTE ---
Patient denies any complaints of pain or discomfort. Heparin infusing at 1600units/hr. Sleeping at intervals. SR on the monitor, 50-60's.
[2024-01-05 07:27] LABS: Glucose - Point of Care 123 mg/dl (70-99)
--- NOTE | 2024-01-05 07:38 | W.PN.CD ---
Today's Communication / Plan
-
Continue current Rx
OK to shower
OK to ambulate
Impression / Plan
-
ACS/CAD:
-Severe 3 v CAD with RCA and LCX occlusion, high grade LAD disease.
-Plan is for patient to undergo CABG on 01/07/2024.
-Echocardiogram revealed LVEF of 55-60%, with possible basal inferior/inferolateral hypokinesis and aortic sclerosis without stenosis.
-Continue aspirin, atorvastatin 40 mg daily, metoprolol tartrate, and heparin drip.
-Continue threat monitoring analyst.
Dyslipidemia.
-LDL 81; continue statin.
Type 2 diabetes mellitus;
-Hemoglobin A1c is 7.1%.
-Management as per primary team.
Subjective:
Telem unremarkable. Denies chest pain or shortness of breath.
Physical Exam
Vital Signs/Labs
Vital Signs
Temp Pulse Resp BP Pulse Ox
97.8 F 66 16 99/64 97
01/05/24 05:35 01/05/24 06:00 01/05/24 05:35 01/05/24 05:38 01/05/24 05:35
01/04/24 01/05/24 01/06/24
06:59 06:59 06:59
Actual Weight 206 lb 5.643 oz
01/04/24 01:24
01/03/24 03:08
PT 14.3 Sec (11.4-14.6) 01/03/24 03:08
PT Cancelled 01/03/24 03:08
INR 1.12 01/03/24 03:08
INR Cancelled 01/03/24 03:08
APTT 98.0 Sec (23.4-35.0) H 01/05/24 05:49
Magnesium 1.9 mg/dl (1.6-2.3) 01/03/24 03:08
Triglycerides 80 mg/dl (10-149) 01/03/24 03:08
LDL Cholesterol, Calc 81 mg/dl 01/03/24 03:08
VLDL Cholesterol, Calc 16 mg/dl (0-30) 01/03/24 03:08
HDL Cholesterol 42 mg/dl 01/03/24 03:08
LAB Results
01/02/24
12:14
Troponin I 0.028
Physical Exam
Constitutional: No acute distress and Comfortable
Cardiovascular: Rhythm & rate is regular and Murmur/rub/gallop absent
Respiratory: Respiratory effort normal, Lungs clear to auscul., Wheeze Absent and Crackles Absent
GI: Soft and Non tender
Neuro/Psych: AO x 3 and Motor deficits absent
Data Reviewed
-
Date of Service: January 05, 2024
--- NOTE | 2024-01-05 08:48 | PTCARENOTE ---
Rec'd pt AAOx3 w/no c/o CP or SOB. Pt's VS stable w/HR in 70's. Pt w/IV Heparin infusing as ordered through patent IV line. Pt requesting to speak w/CM re: living will info & to speak w/one of cardiac volunteers that has had a CABG. This RN sent a
msg to CM & spoke w/volunteer office. Awaiting call backs. Pt w/no addtl needs at this time. Plan of care ongoing.
[2024-01-05] MEDS: LOW STRENGTH ASPIRIN 81 MG PO (08:55)
[2024-01-05] MEDS: LOPRESSOR 12.5 MG PO ×2 (08:55→20:53)
[2024-01-05 12:10] LABS: Glucose - Point of Care 113 mg/dl (70-99)
--- NOTE | 2024-01-05 12:27 | CM ---
Chart reviewed. Patient is independent of ADLS, lives with his in a 2 STH, 2 RENÉE, 0 DME. Patient going for surgery 01/06. Patient would like to do preoperative teaching with his at bedside. CM to follow
--- NOTE | 2024-01-05 13:24 | W.PN.UPDATE ---
Addendum entered and electronically signed by Fernando Mcdaniel MD 01/06/24 10:38:
CARDIAC SURGERY ATTENDING:
I had a long discussion at bedside with Mr. Kaveh Lzoano and his . We reviewed his pathology, the proposed operative interventions, the associated operative risks (including, but not limited to, , stroke, VT, arrhythmia, pneumonia, ALLI/F,
bleeding, infection, and need for reoperative intervention), discussed the expected in-hospital postprocedural course, and reviewed the expected outpatient recovery. All questions were answered to the best my abilities. The patient is agreeable to
proceed. He is scheduled for surgery on 01/07/2024 as a second case.
I anticipate BOBY to LAD, possible left radial artery to OM, greater saphenous vein to diagonal(s), and greater saphenous vein to RPDA/PLB. The patient's diagonal and RPDA/PLB will require intraoperative assessment to determine ideal suitability
for bypass. His STS risks are as calculated below.
Thank you for the opportunity to participate in the care of this kind gentleman.
Please call with any questions or concerns.
Fernando Mcdaniel MD
[phone]
Original Note:
Update Note
Progress Note Update
Tentative Surgery date: Saturday 01/[address] Mcdaniel
Procedure Type:�Isolated CABG
PERIOPERATIVE OUTCOME ESTIMATE %
Operative Mortality 0.548%
Morbidity & Mortality 2.94%
Stroke 0.565%
Renal Failure 0.26%
Reoperation 1.55%
Prolonged Ventilation 1.4%
Deep Sternal Wound Infection 0.117%
Long Hospital Stay (>14 days) 1.48%
Short Hospital Stay (<6 days)* 69.8%
Clinical Summary
Planned Surgery: Isolated CABG, Urgent, First cardiovascular surgery
Demographics: 68 year old, White, male, 96.1kg, 191cm, BMI: 26.3 kg/m�
Lab Values: Creatinine: 0.8 mg/dL, Hematocrit: 41.2%, WBC Count: 9.1 10�/�L, Platelet Count: 543319 cells/�L
PreOp Medications: Oral diabetes control
Substance Abuse: Former smoker, Alcohol use: <=1 drink/week
Risk Factors / Comorbidities: Diabetes Mellitus , Family Hx of CAD
Coronary Artery Disease: 3 vessels diseased, Left Main Stenosis >=50%, Proximal LAD Stenosis >=70%, Unstable Angina
Valve Disease: Trivial/Trace MR, Trivial/Trace TR
--- NOTE | 2024-01-05 15:07 | CM ---
Reviewed preoperative and postoperative instructions, along with showering guidelines to the patient and his . Gave patient a Cardiac Surgery Booklet. Patient is agreeable to a home visit by CT Transitional RN. Plan is for the patient to
return home with CT Transitional RN. CM to follow
--- NOTE | 2024-01-05 17:20 | W.PN.HOSP.TC ---
Today's Communication/Plan
-
Multivessel CAD confirmed by catheterization.
Preserved EF.
Continue IV heparin.
Continue aspirin
Continue statin and beta-msisy.
Pending CABG 01/06.
Assessment / Plan
Assessment / Plan
IMPRESSION:
66M NiDDM HLD p/w atypical chest pain exercise intolerance progressive past few weeks found to have multi-vessel disease on cath.
PLAN:
#Atypical chest pain s/p cath 01/01 notes multi-vessel CAD
Cardio eval appreciated
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
ASA atorvastatin hep gtt metoprolol nitrobid as per cardio
CTS eval appreciated plan for CABG w/ Dr Jonas Pickering 01/06
ECHO appreciated EF 55-60% possible basal inferior/inferolateral hypokineses, aortic sclerosis w/ stenosis, mildly dilated aortic root
Urinalysis suggestive Benign Bacteriuria
No UTI symptoms
pending Urine Cx, possibly will require prophylactic abx treatment for upcoming CABG
#DM
A1c 7.1
metformin held d/t cath
insulin low dose sliding scale
sugars relatively well controlled at this time
#HLD
statin
LDL 81 goal <70 d/t CAD
dvt ppx hep gtt
Full Code
I spent a total of 50 minutes with the patient or on the floor. More than 50% of this time involved counseling and coordination of care.
Anticipated Discharge: > 48 hours
Subjective/Interval History
-
Date of Service: January 05, 2024
Objective Data
-
Labs:
Laboratory Results
01/05/24
05:49
APTT 98.0 H
Vital Signs:
Vital Signs
Temp Pulse Resp BP Pulse Ox
98.1 F 70 18 123/97 98
01/05/24 15:46 01/05/24 16:00 01/05/24 15:46 01/05/24 15:43 01/05/24 15:46
I&O
01/04/24 01/05/24 01/06/24
06:59 06:59 06:59
Intake Total 1440 / 1440
Balance 1440 / 1440
Physical Exam
-
General: Well Developed and No Apparent Distress
HEENT: Normocephalic, Atraumatic and Moist Mucous Membranes
Respiratory: Clear to Auscultation
Cardiac: Regular Rhythm and S1/S2; Negative Murmur, Rub or Gallop
GI: Soft, Nontender, Nondistended and Normal Bowel Sounds; Negative Organomegaly
Rectal: Deferred by Provider
Musculoskeletal: No Clubbing, No Cyanosis and No Edema
Skin: Negative Rash
Neuro: Nonfocal/Grossly Intact
[2024-01-05 17:58] LABS: Glucose - Point of Care 101 mg/dl (70-99)
[2024-01-05] MEDS: LIPITOR 40 MG PO (17:58)
[2024-01-05 23:16] LABS: Glucose - Point of Care 104 mg/dl (70-99)
[2024-01-06] VITALS (10 sets, daily range): BP systolic 97–122; BP diastolic 64–77
--- NOTE | 2024-01-06 00:55 | PTCARENOTE ---
Pt without complaints so far this shift- Heparin gtt running as documented- ambulating the unit as a self. IS provided and education on used conducted. VSS- SR w/ first degree on the monitor. call schafer within reach.
[2024-01-06 04:38] LABS: Hematocrit 42.5 % (39.0-52.0); Hemoglobin 14.4 g/dL (13.0-18.0); Mean Corp Hgb Conc. 33.9 g/dL (33.0-37.0); Mean Corpuscular Hgb 30.5 pg (27.0-31.0); Mean Platelet Volume 10.3 fL (7.4-10.4); Platelet Count 237 10^3/uL (130-400); Red Blood Cell Count 4.72 10^6/uL (4.70-6.10); White Blood Cell Count 7.5 10^3/uL (4.8-10.8)
[2024-01-06 04:48] LABS: APTT 93.2 Sec (23.4-35.0)
[2024-01-06] MEDS: HEPARIN 25000 UNITS/250 ML IV ×2 (06:37→21:38)
[2024-01-06] MEDS: NITRO-BID 0.5 INCH TOPICAL ×3 (06:37→18:14)
[2024-01-06 07:17] LABS: Glucose - Point of Care 111 mg/dl (70-99)
--- NOTE | 2024-01-06 07:35 | PTCARENOTE ---
Assumed care of pt from prev nsg shift; Pt AAOx3 w/no c/o CP or SOB. Pt w/VS stable w/HR in the 60's-70's & SR on telemetry monitoring. Pt w/IV Heparin infusing at ordered rate through patent IV line. Pt w/call schafer within reach & plan of care
ongoing.
[2024-01-06] MEDS: LOW STRENGTH ASPIRIN 81 MG PO (09:05)
[2024-01-06] MEDS: LOPRESSOR 12.5 MG PO ×2 (09:05→22:16)
--- NOTE | 2024-01-06 11:54 | W.PN.UPDATE ---
Update Note
Progress Note Update
Pre-operative orders placed and consent ontained. Patient will be second case tomorrow with Dr. Mcdaniel.
[2024-01-06 12:06] LABS: Glucose - Point of Care 127 mg/dl (70-99)
--- NOTE | 2024-01-06 12:49 | W.PN.CD ---
Today's Communication / Plan
-
-Patient will undergo CABG tomorrow Friday01/07/2024.
-Continue aspirin, atorvastatin 40 mg daily, metoprolol tartrate, and heparin drip.
-Continue clinical research monitor.
Impression / Plan
-
ACS/CAD:
-Severe 3 v CAD with RCA and LCX occlusion, high grade LAD disease.
-Patient will undergo CABG tomorrow Friday01/07/2024.
-Echocardiogram revealed LVEF of 55-60%, with possible basal inferior/inferolateral hypokinesis and aortic sclerosis without stenosis.
-Continue aspirin, atorvastatin 40 mg daily, metoprolol tartrate, and heparin drip.
-Continue clinical research monitor.
Dyslipidemia.
-LDL 81; continue statin.
Type 2 diabetes mellitus;
-Hemoglobin A1c is 7.1%.
-Management as per primary team.
Subjective:
No major events overnight. No cardiac complaints this a.m.
Physical Exam
Vital Signs/Labs
Vital Signs
Temp Pulse Resp BP Pulse Ox
97.9 F 62 16 110/76 99
01/06/24 11:34 01/06/24 11:35 01/06/24 11:34 01/06/24 11:35 01/06/24 11:34
01/06/24 04:18
01/03/24 03:08
PT 14.3 Sec (11.4-14.6) 01/03/24 03:08
PT Cancelled 01/03/24 03:08
INR 1.12 01/03/24 03:08
INR Cancelled 01/03/24 03:08
APTT 93.2 Sec (23.4-35.0) H 01/06/24 04:18
Magnesium 1.9 mg/dl (1.6-2.3) 01/03/24 03:08
Triglycerides 80 mg/dl (10-149) 01/03/24 03:08
LDL Cholesterol, Calc 81 mg/dl 01/03/24 03:08
VLDL Cholesterol, Calc 16 mg/dl (0-30) 01/03/24 03:08
HDL Cholesterol 42 mg/dl 01/03/24 03:08
Physical Exam
Cardiovascular: Rhythm & rate is regular, Pedal edema is absent, Systolic murmur absent and S1S2 is normal
Respiratory: Respiratory effort normal and Lungs clear to auscul.
GI: Soft
Neuro/Psych: AO x 3
Other: Skin (Warm, dry, intact)
Data Reviewed
-
Date of Service: January 06, 2024
EKG: Tracing Personally Visualized and interpreted (Telemetry: Sinus rhythm)
Medical Tests (PFT, Pathology etc): Discussed with Patient
Labs: Labs Reviewed by me
--- NOTE | 2024-01-06 14:07 | CM ---
Chart reviewed. Patient is independent of ADLS, lives with his in a 2 STH, 2 RENÉE, 0 DME. Patient is going for a CABG tomorrow. Plan is for the patient to return home with CT Transitional RN.
--- NOTE | 2024-01-06 16:32 | W.PN.HOSP.TC ---
Today's Communication/Plan
-
CABG scheduled for 01/06
Hospitalist service will sign off
Assessment / Plan
Assessment / Plan
IMPRESSION:
66M NiDDM HLD p/w atypical chest pain exercise intolerance progressive past few weeks found to have multi-vessel disease on cath.
PLAN:
#Atypical chest pain s/p cath 01/01 notes multi-vessel CAD
Cardio eval appreciated
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
ASA atorvastatin hep gtt metoprolol nitrobid as per cardio
CTS eval appreciated plan for CABG w/ Dr Mcdaniel Wed 01/06
ECHO appreciated EF 55-60% possible basal inferior/inferolateral hypokineses, aortic sclerosis w/ stenosis, mildly dilated aortic root
Urinalysis suggestive Benign Bacteriuria
No UTI symptoms
pending Urine Cx, possibly will require prophylactic abx treatment for upcoming CABG
#DM
A1c 7.1
metformin held d/t cath
insulin low dose sliding scale
sugars relatively well controlled at this time
#HLD
statin
LDL 81 goal <70 d/t CAD
dvt ppx hep gtt
Full Code
.
Anticipated Discharge: > 48 hours
Subjective/Interval History
-
Date of Service: January 06, 2024
Objective Data
-
Labs:
Laboratory Results
01/06/24
04:18
WBC 7.5
Hgb 14.4
Hct 42.5
Plt Count 237
APTT 93.2 H
Vital Signs:
Vital Signs
Temp Pulse Resp BP Pulse Ox
98 F 66 16 108/77 98
01/06/24 15:29 01/06/24 16:00 01/06/24 15:29 01/06/24 15:30 01/06/24 15:29
I&O
01/05/24 01/06/24 01/07/24
06:59 06:59 06:59
Intake Total 2 / 115
Balance 1151 115
Physical Exam
-
General: Well Developed and No Apparent Distress
HEENT: Normocephalic, Atraumatic and Moist Mucous Membranes
Respiratory: Clear to Auscultation
Cardiac: Regular Rhythm and S1/S2; Negative Murmur, Rub or Gallop
GI: Soft, Nontender, Nondistended and Normal Bowel Sounds; Negative Organomegaly
Rectal: Deferred by Provider
Musculoskeletal: No Clubbing, No Cyanosis and No Edema
Skin: Negative Rash
Neuro: Nonfocal/Grossly Intact
[2024-01-06 17:09] LABS: Glucose - Point of Care 108 mg/dl (70-99)
[2024-01-06] MEDS: LIPITOR 40 MG PO (18:14)
--- NOTE | 2024-01-06 19:46 | PTCARENOTE ---
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
--- NOTE | 2024-01-06 20:40 | PTCARENOTE ---
Assumed care of patient at 1930. Patient ambulating in room at time of assessment. Patient is AOx4, follows commands appropriately, moves all extremities. Lung sounds are clear and equal bilaterally. Heart sounds have a regular rate and rhythm,
patient is SR on the monitor, there is a normal pulses throughout, no edema is noted. Patient has active BS, continent B/B, has BRP. Patient's skin in grossly intact. Patient has R AC PIV receiving heparin at 1600 units/hr. Patient is for CVOR
tomorrow plan of care and necessary surgical prep explained to patient. Patient verbalized understanding. Patient is stable.
--- NOTE | 2024-01-07 00:45 | PTCARENOTE ---
Patient reassessed. VSS. Patient has no complaints at this time. Remains Sr on the monitor.
[2024-01-07] MEDS: NITRO-BID 0.5 INCH TOPICAL (01:21)
[2024-01-07 05:00] VITALS: BP 104/67
[2024-01-07 05:17] VITALS: BP 100/68
[2024-01-07 05:18] VITALS: BP 104/64
[2024-01-07 06:00] VITALS: BMI 25.5
[2024-01-07] MEDS: PROTONIX 40 MG PO (06:01)
[2024-01-07] MEDS: MAGNESIUM OXIDE 500 MG PO (06:01)
[2024-01-07] MEDS: LOPRESSOR 12.5 MG PO (06:01)
[2024-01-07] MEDS: BACTROBAN 2% OINTMENT 1 APPLIC NASAL ×2 (06:05→19:26)
[2024-01-07] MEDS: NITRO-BID TOPICAL ×2 (06:06→14:01)
--- NOTE | 2024-01-07 07:15 | PTCARENOTE ---
Surgical prep performed. Medications administered. CVOR called for patient. Patient transferred to CVOR at 0700 without incident.
[2024-01-07 08:01] LABS: Urine Albumin Trace (Neg - Trace); Urine Bilirubin Negative (Negative); Urine Character Slightly Cloudy (Clear); Urine Color Yellow; Urine Glucose Negative (Negative); Urine Ketone 1+ (Negative); Urine Leukocyte 2+ (Negative); Urine Nitrite Positive (Negative); Urine Occult Blood 2+ (Negative); Urine Specific Gravity 1.015 (<1.030); Urine Urobilinogen Negative (Neg - 1+)
[2024-01-07 08:01] LABS: ACT+ - POC 107 Seconds (82-134)
[2024-01-07 08:12] LABS: B.E. - POC -0.4 mmol/L; Glucose - POC 139 mg/dl (65-99); HCO3 - POC 24 mmol/L (21-29); Hematocrit - POC 41 % PCV (42-52); Hemodilution- POC Yes; Hemoglobin Calculated - POC 13.9; Ionized Calcium - POC 1.15 mmol/L (1.12-1.27); O2 Saturation %Calculated-POC 99.9 5 (92-96); PCO2 - POC 39 mmHg (35-45); PO2 - POC 287 mmHg (80-100); Potassium - POC 3.9 mmol/L (3.6-5.0); Sodium - POC 144 mmol/L (135-145)
[2024-01-07 08:23] LABS: Urine White Cell 50-60 /HPF (0-5)
[2024-01-07 08:24] LABS: Urine Bacteria Many (Negative)
--- NOTE | 2024-01-07 08:30 | CM ---
Reviewed chart. Mr. Rios is in the operating room today. Prior to admission he resides with his spouse in a two story home with two steps to enter. Prior to admission he was independent with ambulation and adls. He does not have any DME in
the home. Medical work-up in progress. The discharge plan is undetermined at this time.
[2024-01-07 10:21] LABS: ACT+ - POC 454 Seconds (82-134)
[2024-01-07 10:32] LABS: ACT+ - POC 499 Seconds (82-134)
[2024-01-07 11:09] LABS: B.E. - POC -0.6 mmol/L; Glucose - POC 182 mg/dl (65-99); HCO3 - POC 23 mmol/L (21-29); Hematocrit - POC 29 % PCV (42-52); Hemodilution- POC Yes; Hemoglobin Calculated - POC 9.9; Ionized Calcium - POC 0.92 mmol/L (1.12-1.27); O2 Saturation %Calculated-POC 99.9 5 (92-96); PCO2 - POC 35 mmHg (35-45); PO2 - POC 332 mmHg (80-100); Potassium - POC 5.5 mmol/L (3.6-5.0); Sodium - POC 136 mmol/L (135-145); pH - POC 7.44 (7.35-7.45)
[2024-01-07 11:12] LABS: ACT+ - POC 509 Seconds (82-134)
[2024-01-07 11:56] LABS: ACT+ - POC 522 Seconds (82-134)
[2024-01-07 11:59] LABS: Glucose - POC 201 mg/dl (65-99); HCO3 - POC 23 mmol/L (21-29); Hematocrit - POC 36 % PCV (42-52); Hemodilution- POC Yes; Hemoglobin Calculated - POC 12.1; Ionized Calcium - POC 1.09 mmol/L (1.12-1.27); O2 Saturation %Calculated-POC 99.8 5 (92-96); PCO2 - POC 43 mmHg (35-45); PO2 - POC 240 mmHg (80-100); Potassium - POC 3.7 mmol/L (3.6-5.0); Sodium - POC 142 mmol/L (135-145); pH - POC 7.33 (7.35-7.45)
[2024-01-07 12:27] LABS: B.E. - POC -3.3 mmol/L; Glucose - POC 231 mg/dl (65-99); HCO3 - POC 23 mmol/L (21-29); Hematocrit - POC 37 % PCV (42-52); Hemodilution- POC Yes; Hemoglobin Calculated - POC 12.7; Ionized Calcium - POC 1.03 mmol/L (1.12-1.27); O2 Saturation %Calculated-POC 99.4 5 (92-96); PCO2 - POC 45 mmHg (35-45); PO2 - POC 172 mmHg (80-100); Potassium - POC 3.8 mmol/L (3.6-5.0); Sodium - POC 142 mmol/L (135-145); pH - POC 7.31 (7.35-7.45)
[2024-01-07 12:31] LABS: ACT+ - POC 535 Seconds (82-134)
[2024-01-07 13:21] LABS: ACT+ - POC 109 Seconds (82-134)
[2024-01-07 13:21] LABS: B.E. - POC -3.5 mmol/L; Glucose - POC 166 mg/dl (65-99); HCO3 - POC 22 mmol/L (21-29); Hematocrit - POC 36 % PCV (42-52); Hemodilution- POC Yes; Hemoglobin Calculated - POC 12.3; Ionized Calcium - POC 1.25 mmol/L (1.12-1.27); O2 Saturation %Calculated-POC 99.9 5 (92-96); PCO2 - POC 40 mmHg (35-45); PO2 - POC 332 mmHg (80-100); Potassium - POC 3.1 mmol/L (3.6-5.0); Sodium - POC 144 mmol/L (135-145); pH - POC 7.35 (7.35-7.45)
--- NOTE | 2024-01-07 13:54 | W.IMMPOSTOP ---
Addendum entered and electronically signed by Fernando Mcdaniel MD 01/07/24 14:56:
[id number]
Original Note:
Surgical Immed Post Op Note
-
CARDIAC SURGERY OPERATIVE NOTE:
Preoperative Dx:
Multivessel CAD
Postoperative Dx:
Same
Procedures:
1) Median sternotomy
2) Takedown of BOBY (narrow pedicle)
3) Open harvest of L RA
4) Endoscopic harvest of RLE GSV
5) CABG x 4 (BOBY to LAD, GSV to D2, L RA to OM3, GSV to R PDA)
Surgeon:
Fernando Mcdaniel M.D.
Assistants:
Sonam Bustos P.A.-C.; endoscopic GSV harvest/prep, outpatient physical therapist assistant throughout, closure
Vijay AdamsAMamie-CMamie; open harvest of L RA, closure of LLE GSV incisions, [id number] closure
Anesthesia:
Terrell Kim M.D. and Aracelis Pleitez, C.R.N.A.
Perfusion:
Boubacar Frye, C.C.P.; CPB: 120min, XC: 79min
Findings:
BOBY was healthy appearing vessel w/ very brisk blood flow; ELD 2.75mm; high bifurcation (excluded)
L RA was healthy appearing vessel w/ ELD 3.25mm
GSV was healthy appearing vessel w/ ELD 3.0-3.75mm
LAD was visible on the epicardial surface, scant/scattered calcifications, normal may at midpoint anastomosis; ELD 2.5mm
D2 was visible on the epicardial surface, dense proximal, scattered distal calcifications, slightly thin walled at midpoint anastomosis, ELD 2.25mm
OM3 was visible on the epicardial surface, normal may at anastomosis; ELD 2.5mm. There was a smaller OM branch just inferior (~3mm away) to this vessel that filled briskly w/ flow through RA into OM3 target
PDA was visible on the epicardial surface, ELD 2.5mm
PLB were too small to accommodate bypass
POST-LIU: LVEF 60% (improved from 45-50% preop), normal valve function, aortic sclerosis w/o stenosis
Transfusions:
None
Complications:
None
Implants:
CT x 4 (B/L pleural, inferior mediastinal, superior mediastinal)
Sternal 'X' plate w/ 4 - 14mm and 4 - 16mm screws
Steranl 'Square' plate w/ 4 - 12mm screws
Condition:
74 sinus w/ isoelectric STs. 95/53. CVP 18. 100%
GTTS: levophed 8, precedex 0.5, nicardipine 3, insulin 1
Stable/guarded to CVICU
[2024-01-07] MEDS: LOW STRENGTH ASPIRIN PO (13:58)
[2024-01-07] MEDS: LOPRESSOR PO (13:58)
--- NOTE | 2024-01-07 14:07 | W.CVOR.SURPR ---
CVOR Surgeon Immed Pre Op
-
I have examined this patient prior to performance of the scheduled procedure.
The patient's condition is unchanged from the time of the dictated/written History and
Physical and the patient is able to undergo the scheduled procedure.
--- NOTE | 2024-01-07 14:11 | PN.DE.MGMTRT ---
Insulin Management
- -
01/07/2024: Diabetes Management Consult.
68 year old male admitted 01/01 with atypical CP and exercise intolerance for past few weeks, S/P Cardiac Cath-->Multivessel CAD.
PMH includes: CAD, HLD and T2DM, A1C 7.1%, Cr 0.8, eGFR>60. Was taking Metformin 500mg BID prior to admission.
Metformin was held d/t cath, started on low dose sliding scale insulin.
Pt is not available for interview at this time, currently in the OR for Procedure--> CABG today.
His glucose has been relatively well controlled, premeal range 101 to 130 at this time.
He will be managed on Critical Care Glycemic protocol post-op x48 Hrs.
Will followup tomorrow.
Diabetes History
- -
Type of Diabetes: 2
Pre-Admission Diabetes Regimen
Lab Results
Hemoglobin A1c 7.1 % (4.0-5.6) H 01/02/24 12:14
Insulin Pump Settings
IP Diabetes Regimen
01/06/24
17:07
POC Glucose 108 H
Meal type: Lunch
Amount consumed: 100%
Patient Education
[2024-01-07] MEDS: NSS 500 IV (14:15)
--- NOTE | 2024-01-07 14:22 | CON.INTV ---
Consultation
Consultation Request
Date/Time Consultation Requested: 01/06
Date/Time Consultation Performed: 01/06
Reason for Consultation: Critical care
Medical History
-
History of Present Illness:
History obtained from the chart, reviewing inpatient and outpatient records. Patient currently intubated and sedated. 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 He also had some episodes with simple walking, belching and chest pressure. Upon arrival to [facility], afebrile, pulse 75, breathing 18, blood pressure 159/99, 98%. Patient underwent cardiac catheterization which revealed EF
52%, severe calcified triple-vessel disease, treated with heparin therapy. Patient is now status post CABG x 4, 01/07/2024. We are asked to help from critical care standpoint. Patient currently on Precedex, nicardipine, insulin, norepinephrine
.
PMH: Diabetes, hypertension, hyperlipidemia, BPH. History of appendectomy, cervical fusion surgery, benign left upper extremity lipoma removal
Past Medical History
Past Medical History: None (See above)
Past Surgical History: None (See above)
Social History
Tobacco: Non-smoker
Alcohol: None
Drug: None
Personal:
Living: With Family
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
Family History
Family History: Other (Family history of coronary disease, valvular disease)
Allergies / Home Medications
Allergies
Allergy/AdvReac Type Severity Reaction Status Date / Time
amoxicillin [From Augmentin] Allergy Unknown Verified 01/02/24 15:05
clavulanic acid Allergy Unknown Verified 01/02/24 15:05
[From Augmentin]
Home Medications
�Medication �Instructions �Recorded �Confirmed �Last Taken �Type
metformin 500 mg tablet 500 mg PO BIDWMEAL Diabetes 01/02/24 01/02/24 01/02/24 History
rosuvastatin 5 mg tablet 5 mg PO Q72H High Cholesterol 01/02/24 01/02/24 12/31/23 History
Review of Systems
-
Unable to Obtain full review of systems at this time due to: Patient Intubation
Vitals / Labs / Diagnostic Testing
Vital Signs
Temp Pulse Resp BP Pulse Ox
97.7 F 71 20 104/64 98
01/07/24 05:00 01/07/24 07:00 01/07/24 05:00 01/07/24 06:01 01/07/24 05:00
Laboratory Results
01/07/24
06:00
APTT Cancelled
Microbiology
01/04/24 10:08 Urine Urine Culture - Final
Klebsiella pneumoniae
Diagnostic Testing:
Physical Exam
-
HEENT: Normocephalic, Anicteric, Other (IJ, right upper extremity A-line) and Other (Chest tube in place)
Cardiovascular: S1/S2, Regular Rhythm, Murmur (n), Rub (n) and Peripheral Edema (n)
Respiratory: Wheeze (n), Rales (n) and Rhonchi (n)
GI: Soft and Non Distended
Neurology: Other (Sedated, ET tube)
Skin: Other (Left upper extremity bandage)
General: Comfortable
Assessment
-
68-year-old male with history of diabetes, hypertension, presents with 1 week history of exertional chest pain, belching admitted 01/02/2024 found to have severe calcified multivessel coronary disease, now status post CABG x 4 on 01/07/2024. Of note
postoperative EF 60% compared to 45% preoperatively. We are asked to help from critical care standpoint 01/07/2024
S/p CABG x 4, 01/07/24
Severe multivessel disease, calcified
Hyperglycemia
Abnormal UA
Urine culture positive for Klebsiella pneumonia
Conditions present prior to admission
Diabetes
Hypertension/hyperlipidemia
Plan/recommendations
At this time, patient remains critically ill but stable. On pressors, Precedex, insulin drip
Postoperative LIU shows improvement in EF to 60%
Postoperative EKG nonspecific T wave changes
Postoperative chest x-ray unremarkable
Moving forward
Continue with management per CT surgery
Remains on volume-cycled elevation, FiO2 being weaned, ABG with adequate ventilation/oxygenation
Anticipate extubation later today
Follow blood sugars
On insulin drip
Patient on norepinephrine and Cardene for left upper extremity radial graft
Chest tube output minimal. Follow hemoglobin
Reviewed with critical care nursing
We will follow
TCCT 31 min
[2024-01-07 14:23] LABS: Glucose - Point of Care 142 mg/dl (70-99)
--- NOTE | 2024-01-07 14:30 | W.PN.CD ---
Addendum entered and electronically signed by Quique Dela Cruz MD 01/07/24 18:29:
68 yo male with triple vessel CAD s/p CABG today. Hopeful for extubation today. Exam with RRR, no murmurs, no edema. EF 60% on LIU. NSR on tele.
Weaning drip and vent.
Trend tele.
ASA, statin.
Original Note:
Today's Communication / Plan
-
Close post-op monitoring and care with weaning of drips/vent per CT surgery/CVICU protocol
Impression / Plan
-
Coronary artery disease:
-Cath revealed severe 3 v CAD with RCA and LCX occlusion, high grade LAD disease.
-Echocardiogram revealed LVEF of 55-60%, with possible basal inferior/inferolateral hypokinesis and aortic sclerosis without stenosis.
-patient now s/p CABG x 4 (BOBY to LAD, GSV to D2, L RA to OM3, GSV to R PDA) with Dr. Mcdaniel 01/07/24. Per op note, LVEF 60% (improved from 45-50% preop LIU), normal valve function, aortic sclerosis w/o stenosis
-post-op patient is intubated and sedated
-CT, Arce in place
-current drips: Levophed, Cardene
-post-op EKG SR with inferior ST/T abnormality, tele SR
Dyslipidemia.
-LDL 81; continue statin.
Type 2 diabetes mellitus;
-Hemoglobin A1c is 7.1%.
-Management as per primary team
-on insulin gtt post-op
Physical Exam
Vital Signs/Labs
Vital Signs
Temp Pulse Resp BP Pulse Ox
97.7 F 71 20 104/64 98
01/07/24 05:00 01/07/24 07:00 01/07/24 05:00 01/07/24 06:01 01/07/24 05:00
01/06/24 01/07/24 01/08/24
06:59 06:59 06:59
Actual Weight 92.6 kg
PT 14.3 Sec (11.4-14.6) 01/03/24 03:08
PT Cancelled 01/03/24 03:08
INR 1.12 01/03/24 03:08
INR Cancelled 01/03/24 03:08
APTT Cancelled 01/07/24 06:00
Magnesium 1.9 mg/dl (1.6-2.3) 01/03/24 03:08
Triglycerides 80 mg/dl (10-149) 01/03/24 03:08
LDL Cholesterol, Calc 81 mg/dl 01/03/24 03:08
VLDL Cholesterol, Calc 16 mg/dl (0-30) 01/03/24 03:08
HDL Cholesterol 42 mg/dl 01/03/24 03:08
Physical Exam
Constitutional: No acute distress
Cardiovascular: Rhythm & rate is regular
Respiratory: Lungs clear to auscul. and Other (intubated/ventilated)
Neuro/Psych: Other (sedated)
Other: Skin (mid-sternal dressing CDI)
Data Reviewed
-
Date of Service: January 07, 2024
EKG: Tracing Personally Visualized and interpreted (SR with ST/T abnormalities) and Other (SR)
[2024-01-07 14:38] LABS: B.E. -1.8 mmol/L; HCO3 23.1 mmol/L (21-28); Ionized Calcium 1.21 mMOL/L (1.15-1.33); PCO2 39 mmHg (35-48); PO2 238 mmHg (83-108); Potassium 3.6 mMOL/L (3.5-5.1); Sodium 139 mMOL/L (136-145); pH 7.38 (7.35-7.45)
[2024-01-07 14:40] LABS: Hematocrit 36.6 % (39.0-52.0); Hemoglobin 12.7 g/dL (13.0-18.0); Platelet Count 174 10^3/uL (130-400)
[2024-01-07 14:48] LABS: INR 1.41; PT 17.3 Sec (11.4-14.6)
[2024-01-07 14:53] LABS: Blood Urea Nitrogen 16 mg/dl (9-20); Estimated Creatinine Clearance 96 ml/min; Glucose 139 mg/dl (70-99); Magnesium 2.8 mg/dl (1.6-2.3)
[2024-01-07] MEDS: KCL 50 IV ×2 (15:00→16:19)
[2024-01-07 15:03] LABS: Glucose - Point of Care 129 mg/dl (70-99)
--- NOTE | 2024-01-07 15:52 | SUR.OPER ---
Rec'd pt from [facility] mechanically ventilated and sedated. Pt on IV Levo at 8 mcg/min, IV cardene at 3mg/hr and Insulin. Pt with RT IJ cordis and RT IJ slick. Labs sent. EKG done and CXR done. Pt NSR on monitor. Vent settings SIMV 14-550 peep 5 PS 5
.40%. Labs replaced as per protocol. Insulin drip titrated according to glycemic protocol. Pt awake at this time, following commands, FRANKLIN spontaneously and to command. Pt placed on CPAP 5 PS 5 .40%. RR 12-14, pulse ox 100%. No resp distress noted.
See worklist for VS/I and O and assessments.
[2024-01-07 16:07] LABS: Glucose - Point of Care 133 mg/dl (70-99)
[2024-01-07] MEDS: ANCEF 10 IV ×2 (16:11)
[2024-01-07] MEDS: NOVOLOG FLEXPEN SC ×2 (16:12→17:25)
[2024-01-07] MEDS: NEURONTIN PO ×2 (16:12)
[2024-01-07] MEDS: TYLENOL PO (16:13)
[2024-01-07] MEDS: ALBUMIN 5% 250 IV (16:18)
[2024-01-07 16:36] LABS: B.E. -0.7 mmol/L; HCO3 24.2 mmol/L (21-28); PCO2 40 mmHg (35-48); PO2 121 mmHg (83-108); pH 7.39 (7.35-7.45)
[2024-01-07] MEDS: DILAUDID 0.5 MG IV (16:48)
--- NOTE | 2024-01-07 17:26 | PTCARENOTE ---
ABG obtained on CPAP. Pt extubated at 1645 and placed on 6l n/c oxygen. Pulse ox 98%. Pt bathed with CHG wipes, turned side to side, tolerated well.
[2024-01-07 17:35] LABS: Glucose - Point of Care 167 mg/dl (70-99)
[2024-01-07 17:45] LABS: Hematocrit 35.7 % (39.0-52.0); Hemoglobin 12.4 g/dL (13.0-18.0); Platelet Count 185 10^3/uL (130-400)
[2024-01-07] MEDS: PACERONE 200 MG PO ×2 (17:46→22:05)
[2024-01-07] MEDS: NORVASC 2.5 MG PO (17:46)
[2024-01-07] MEDS: LOW STRENGTH ASPIRIN 81 MG PO (18:04)
[2024-01-07] MEDS: TYLENOL 650 MG PO (18:04)
[2024-01-07] MEDS: ROXICODONE 5 MG PO (18:04)
[2024-01-07] MEDS: LEVOPHED 250 IV (18:33)
[2024-01-07] MEDS: CARDENE 200 IV (18:33)
[2024-01-07 18:41] LABS: Glucose - Point of Care 170 mg/dl (70-99)
[2024-01-07] MEDS: TORADOL 15 MG IV (19:26)
[2024-01-07] MEDS: SENOKOT-S 1 TABLET PO (19:26)
--- NOTE | 2024-01-07 20:14 | PTCARENOTE ---
Received patient from dayshift RN in stable condition. On 2L NC, SR on tele. Valentina in place, on levophed and cardene. L radial harvest site wrapped in PATSY. CT to suction, minimal output. Insulin IV running per protocol. Receiving PRN pain
medication. Able to make needs known.
[2024-01-07 20:31] LABS: Glucose - Point of Care 152 mg/dl (70-99)
[2024-01-07] MEDS: ANCEF 5 IV (21:10)
[2024-01-07] MEDS: NEURONTIN 100 MG PO (22:05)
[2024-01-07] MEDS: LIPITOR 40 MG PO (22:05)
[2024-01-07] MEDS: TYLENOL 1000 MG PO (22:05)
[2024-01-07 22:08] LABS: Glucose - Point of Care 144 mg/dl (70-99)
[2024-01-07 23:03] LABS: Glucose - Point of Care 161 mg/dl (70-99)
[2024-01-08] VITALS (34 sets, daily range): BP systolic 75–119; BP diastolic 52–74; PULSE 97; O2SAT 95–99; BMI 25.9
[2024-01-08 00:15] LABS: Glucose - Point of Care 108 mg/dl (70-99)
[2024-01-08] MEDS: FLEXERIL 5 MG PO (00:22)
--- NOTE | 2024-01-08 00:29 | PTCARENOTE ---
Overall condition unchanged from previous assessment. Continued on insulin, cardene and levophed infusions. UOP continued around 100cc/hr. CT output continued minimal. Patient pain better controlled. Patient able to make needs known.
[2024-01-08] MEDS: ROXICODONE 5 MG PO ×3 (01:01→23:03)
[2024-01-08 01:05] LABS: Glucose - Point of Care 113 mg/dl (70-99)
[2024-01-08 02:04] LABS: Glucose - Point of Care 91 mg/dl (70-99)
[2024-01-08 03:04] LABS: Glucose - Point of Care 102 mg/dl (70-99)
--- NOTE | 2024-01-08 04:13 | PTCARENOTE ---
Patient overall status unchanged from last assessment. Levophed infusion weaned off. Patient continued on cardene for radial harvest. Morning labs sent, awaiting results. Pain controlled with PRN medications.
[2024-01-08 04:25] LABS: Hematocrit 34.1 % (39.0-52.0); Hemoglobin 11.7 g/dL (13.0-18.0); Mean Corp Hgb Conc. 34.3 g/dL (33.0-37.0); Mean Corpuscular Hgb 30.6 pg (27.0-31.0); Mean Corpuscular Volume 89.3 fL (80.0-94.0); Mean Platelet Volume 10.7 fL (7.4-10.4); Platelet Count 183 10^3/uL (130-400); Red Blood Cell Count 3.82 10^6/uL (4.70-6.10); Red Cell Dist. Width 13.1 % (11.5-14.5); White Blood Cell Count 12.6 10^3/uL (4.8-10.8)
[2024-01-08 05:00] LABS: Blood Urea Nitrogen 13 mg/dl (9-20); Calcium 8.8 mg/dl (8.4-10.2); Carbon Dioxide 23 mmol/L (22-30); Chloride 107 mmol/L (98-107); Estimated Creatinine Clearance 109 ml/min; Glucose 81 mg/dl (70-99); Magnesium 2.4 mg/dl (1.6-2.3); Potassium 4.6 mmol/L (3.5-5.1); Sodium 136 mmol/L (135-145); eGFR > 60.00
[2024-01-08] MEDS: ANCEF 5 IV ×2 (05:03→13:10)
[2024-01-08 05:05] LABS: Glucose - Point of Care 82 mg/dl (70-99)
--- NOTE | 2024-01-08 05:50 | W.PN.CT ---
Today's Communication / Plan
-
-pod #1
-no issues overnight
-drips: Levo 4, Cardene 1 (for radial graft), Insulin
-CT output: 2 meds 55/100, 2 pleur 110/250 in 12/24 hrs
-continue insulin
-hx BPH with retention after surgery in the past - started Flomax this am
-d/c a-line
-current meds (ASA, Plavix, Lipitor, Lopressor, Amio, Protonix, Norvasc for radial graft)
-encourage IS, OOB
Assessment / Plan
-
- Mv-CAD - s/p CABG x 4 (BOBY to LAD, GSV to D2, L RA to OM3, GSV to R PDA); Open harvest of L RA; R EVH on 01/07/[address] Mcdaniel, pod #1
- POST-LIU: LVEF 60% (improved from 45-50% preop), normal valve function, aortic sclerosis w/o stenosis
- HTN/HLD
- DM II (HgA1c 7.1)
- Current smoker (cigars, former cigarettes)
- BPH, hx urinary retention after neck surgery in the past
- Acute postop blood loss anemia - stable without transfusion
- Acute postop atelectasis
- Acute postop hypovolemia with subsequent hypervolemia
- Acute postop hematuria - resolved
Discussed patient care with: Nursing and Care Team
Subjective
Procedure
- s/p CABG x 4 (BOBY to LAD, GSV to D2, L RA to OM3, GSV to R PDA); Open harvest of L RA; R EVH on 01/07/[address] Mcdaniel
-
Date of Service: January 07, 2024
Objective Data
-
Lab Results
01/07/24 17:30
01/07/24 14:18
PT 17.3 Sec (11.4-14.6) H 01/07/24 14:18
INR 1.41 01/07/24 14:18
APTT Cancelled 01/07/24 06:00
Vital Signs
Vital Signs
Temp Pulse Resp BP Pulse Ox
99.9 F 87 18 110/55 99
01/07/24 22:03 01/07/24 22:00 01/07/24 22:03 01/07/24 22:05 01/07/24 22:00
CT Intake/Output/Weight
01/07/24 01/07/24 01/08/24
06:59 18:59 06:59
Intake Total 645.1 / 793.0 147.9 / 793.0
Output Total 835 / 1370 535 / 1370
Balance -189.9 / -577.0 -387.1 / -577.0
SaO2: 99
Physical Exam
-
General: Awake and AOx3
Cardiovascular: Regular rate & rhythm, No Murmurs and Rub
Respiratory: Decreased Breath Sounds
Sternum: Stable
Incision: Clean, Dry and Intact
Extremities: No Edema (2+DP b/l)
Data Reviewed
-
Lab Results: Results Reviewed
Medications: Active Meds Reviewed
Chest X-Ray: Report Reviewed and Image Reviewed
ECG: Report Reviewed and Image Reviewed
[2024-01-08] MEDS: TYLENOL 1000 MG PO ×3 (05:51→21:32)
[2024-01-08] MEDS: FLOMAX 0.400000000000000022 MG PO (05:52)
--- NOTE | 2024-01-08 06:14 | PTCARENOTE ---
Valentina and ellen removed. Patient up to chair with no difficulties. Lechuga remaining in d/t BPH issues, started on flomax and lechuga d/c will be revisited later in day.
--- NOTE | 2024-01-08 06:54 | W.PN.INTV ---
Today's Communication / Plan
Recommendations
Pain control, incentive spirometry
Insulin drip continues, follow blood sugars
Positive Klebsiella UTI noted. Macrodantin started
wean pressors
Assessment
-
68-year-old male with history of diabetes, hypertension, presents with 1 week history of exertional chest pain, belching admitted 01/02/2024 found to have severe calcified multivessel coronary disease, now status post CABG x 4 on 01/07/2024. Of note
postoperative EF 60% compared to 45% preoperatively. We are asked to help from critical care standpoint 01/07/2024
S/p CABG x 4, 01/07/24
Severe multivessel disease, calcified
Hyperglycemia
Abnormal UA
Urine culture positive for Klebsiella pneumonia
Conditions present prior to admission
Diabetes
Hypertension/hyperlipidemia
Plan/recommendations
At this time, patient remains critically ill but stable. On norepinephrine, Cardene, insulin
Postoperative LIU shows improvement in EF to 60%
Postoperative EKG nonspecific T wave changes
Postoperative chest x-ray unremarkable
Moving forward
Continue with management per CT surgery
Splinting noted, decreased breath sounds noted
Chest x-ray unremarkable
Pain control, incentive spirometry
Follow blood sugars
On insulin drip
Wean per CT surgery protocol
Patient on norepinephrine and Cardene for left upper extremity radial graft
Norepinephrine is currently being weaned
Chest tube output minimal. Follow hemoglobin
Abnormal UA, urine culture noted
Treatment per CT surgery
Reviewed with critical care nursing
Subjective Dataa
Subjective Data
Date of Service:
Date of Service: January 08, 2024
Subjective:
Patient extubated without difficulty, doing well, sitting in chair. Mild pain, splinting noted. A-line has been discontinued. Chest tube output minimal
Objective Data
Data Reviewed
Vital Signs / I&O / Oxygen:
Vital Signs
Temp Pulse Resp BP Pulse Ox
99.6 F 95 14 97/66 97
01/08/24 04:06 01/08/24 06:00 01/08/24 05:00 01/08/24 06:00 01/08/24 05:00
Intake and Output
01/06/24 01/07/24 01/08/24
06:59 06:59 06:59
Intake Total 1152 / 1152 1152 / 1152 992.3 / 992.3
Output Total 2094
Balance 1152 / 1152 1152 / 1152 -1102.7 / -1102.7
SaO2 97
Nasal Cannula flow liters per 2
minute
Physical Exam
General: Comfortable and Other (IJ, chest tube)
HEENT: Normocephalic and Anicteric
Cardiovascular: S1-S2, Regular Rhythm, Murmur (n) and Rub (n)
Respiratory: Wheeze (n), Crackles (n), Rhonchi (n), Stridor (n), Chest Tube and Other (Decreased breath sounds, splinting)
GI: Soft, Non Distended and Non Tender
Neurology: Awake, Alert and No Motor Deficits
Skin: Cyanosis (n), Jaundice (n) and Rash (n)
Labs/Micro/Reports
Lab Data
01/08/24 04:04
01/08/24 04:04
Laboratory Results
01/07/24 01/07/24 01/07/24
06:00 14:18 16:26
PT 17.3 H
INR 1.41
APTT Cancelled
pH 7.38 7.39
pCO2 39 40
pO2 238 H 121 H
HCO3 23.1 24.2
O2 Delivery Level
Microbiology
01/04/24 10:08 Urine Urine Culture - Final
Klebsiella pneumoniae
[2024-01-08 07:10] LABS: Glucose - Point of Care 96 mg/dl (70-99)
--- NOTE | 2024-01-08 07:30 | PTCARENOTE ---
Received pt from date night caregiver RN; Pt AAOx3 and resting comfortably in chair; NSR on monitor and VSS; RIJ Cordis and PIV x1 patent; Insulin drip per Glycemic protocol see flow sheet for details; Lungs diminished; IS to 750; CT x4 to -20 wall suction
no air leak and no crepitus noted; hypoactive bowel sounds; Arce Catheter draining clear yellow urine; palpable pulses throughout; +1 edema in left hand; all surgical sites C/D/I; see nursing documentation for further details.
[2024-01-08] MEDS: LIDOCAINE 4% PATCH 1 PATCH TOPICAL (07:50)
[2024-01-08] MEDS: SENOKOT-S 1 TABLET PO ×2 (07:51→20:15)
[2024-01-08] MEDS: TORADOL 15 MG IV (07:51)
[2024-01-08] MEDS: MAGNESIUM OXIDE 500 MG PO ×2 (07:51→20:15)
[2024-01-08] MEDS: NORVASC 2.5 MG PO (07:51)
[2024-01-08] MEDS: PROTONIX 40 MG PO (07:51)
[2024-01-08] MEDS: PLAVIX 75 MG PO (07:51)
[2024-01-08] MEDS: NEURONTIN 100 MG PO ×3 (07:51→21:32)
[2024-01-08] MEDS: LOW STRENGTH ASPIRIN 81 MG PO (07:51)
[2024-01-08] MEDS: PACERONE 200 MG PO (07:53)
[2024-01-08] MEDS: NOVOLOG FLEXPEN SC (07:54)
[2024-01-08] MEDS: BACTROBAN 2% OINTMENT 1 APPLIC NASAL ×2 (07:56→20:13)
--- NOTE | 2024-01-08 08:19 | PN.DE.MGMTRT ---
Insulin Management
- -
01/08/2024: Diabetes Management Consult.
68 year old male admitted 01/01 with atypical CP and exercise intolerance for past few weeks, S/P Cardiac Cath-->Multivessel CAD.
PMH includes: CAD, HLD and T2DM, A1C 7.1%, Cr 0.8, eGFR>60. Was taking Metformin 500mg BID prior to admission.
Metformin was held d/t cath, started on low dose sliding scale insulin.
POD #1 s/p CABG x4. Pt is awake, alert, sitting up in chair, eating breakfast, offers no complaints, very pleasant and able to participate in discussion regarding diabetes plan of care. States he has been diabetic for >8 yrs and took outpatient
diabetes classes here in 2019.
He remains on glycemic protocol, glucose is relatively well controlled, premeal range 82 to 113, requiring 0.2 to 2.3 units of insulin/hr.
Will cont Critical Care Glycemic protocol post-op x48 Hrs. Pt states he has a working meter at home, recently got a new one- OneTouch
Will cont to follow and transition off drip to oral regimen tomorrow--> Metformin and Jardiance or Farxiga.
Discussed SGLT2 action and SE, pt was agreeable to either one that is covered by his insurance. Will ask SW to check cost
Diabetes History
- -
Type of Diabetes: 2
Pre-Admission Diabetes Regimen
01/07/24 01/08/24
14:18 04:04
Creatinine 0.9 0.8
Lab Results
Hemoglobin A1c 7.1 % (4.0-5.6) H 01/02/24 12:14
Insulin Pump Settings
IP Diabetes Regimen
01/07/24 01/07/24 01/07/24
14:18 14:21 15:01
Glucose 139 H
POC Glucose 142 H 129 H
01/07/24 01/07/24 01/07/24
16:06 17:34 18:40
Glucose
POC Glucose 133 H 167 H 170 H
01/07/24 01/07/24 01/07/24
20:30 22:07 23:02
Glucose
POC Glucose 152 H 144 H 161 H
01/08/24 01/08/24 01/08/24
00:13 01:03 02:03
Glucose
POC Glucose 108 H 113 H 91
01/08/24 01/08/24 01/08/24
03:03 04:04 05:04
Glucose 81
POC Glucose 102 H 82
01/08/24
07:09
Glucose
POC Glucose 96
Patient Education
[2024-01-08 08:58] LABS: Glucose - Point of Care 114 mg/dl (70-99)
--- NOTE | 2024-01-08 09:53 | W.PN.ANS.POP ---
Anesthesia Post Operative
- Anesthesia Post Op Note
Vital Signs Stable-See Nursing Note: Yes
Airway Patent: Yes
Adequate Pain Control: Yes
Change in Mental Status: No
Current Postoperative Nausea & Vomiting: No
Anesthesia Complications: No
General Anesthetic Recall: No
Unplanned Admission: No
Post Op Hydration Adequate: Yes
--- NOTE | 2024-01-08 10:02 | W.PN.CD ---
Addendum entered and electronically signed by Quique Dela Cruz MD 01/08/24 11:17:
68 yo male with CAD is admitted following CABG 01/06. Reports fatigue. Exam with RRR, no murmurs, trace edema. Tele: SR 80s. continue ASA, Plavix, statin.
Original Note:
Today's Communication / Plan
-
-encourage IS and ambulation as tolerated
-continue ASA, statin, BB
-follow telemetry
Impression / Plan
-
Coronary artery disease:
-Cath revealed severe 3 v CAD with RCA and LCX occlusion, high grade LAD disease.
-Echocardiogram revealed LVEF of 55-60%, with possible basal inferior/inferolateral hypokinesis and aortic sclerosis without stenosis.
-patient now s/p CABG x 4 (BOBY to LAD, GSV to D2, L RA to OM3, GSV to R PDA) with Dr. Mcdaniel 01/07/24. Per op note, LVEF 60% (improved from 45-50% preop LIU), normal valve function, aortic sclerosis w/o stenosis
-now extubated. CTs and lechuga remain in place.
-post-op EKG SR with inferior ST/T abnormality- improved on this AM's EKG
-tele shows SR
-post-op pain controlled
-continue ASA, statin, BB, on CCB for radial graft
Dyslipidemia.
-LDL 81; continue statin.
Type 2 diabetes mellitus;
-Hemoglobin A1c is 7.1%.
-Management as per primary team
Patient looks good, OOB to chair. Feels well overall. Pain is controlled.
Physical Exam
Vital Signs/Labs
Vital Signs
Temp Pulse Resp BP Pulse Ox
99.1 F 89 18 107/57 95
01/08/24 08:00 01/08/24 09:00 01/08/24 09:07 01/08/24 09:00 01/08/24 09:13
01/07/24 01/08/24 01/09/24
06:59 06:59 06:59
Actual Weight 92.6 kg 93.9 kg
01/08/24 04:04
01/08/24 04:04
PT 17.3 Sec (11.4-14.6) H 01/07/24 14:18
INR 1.41 01/07/24 14:18
APTT Cancelled 01/07/24 06:00
Magnesium 2.4 mg/dl (1.6-2.3) H 01/08/24 04:04
Triglycerides 80 mg/dl (10-149) 01/03/24 03:08
LDL Cholesterol, Calc 81 mg/dl 01/03/24 03:08
VLDL Cholesterol, Calc 16 mg/dl (0-30) 01/03/24 03:08
HDL Cholesterol 42 mg/dl 01/03/24 03:08
Physical Exam
Constitutional: No acute distress
EENT: Anicteric
Cardiovascular: Rhythm & rate is regular
Respiratory: Respiratory effort normal and Lungs clear to auscul.
Neuro/Psych: AO x 3
Other: Skin (midsternal incision site dressing CDI)
Data Reviewed
-
Date of Service: January 08, 2024
EKG: Tracing Personally Visualized and interpreted and Other (SR on tele)
Labs: Labs Reviewed by me
[2024-01-08] MEDS: LOPRESSOR 12.5 MG PO ×2 (10:03→20:14)
[2024-01-08] MEDS: LR 500 IV (11:45)
--- NOTE | 2024-01-08 12:06 | PTCARENOTE ---
Pt SBP 70-80's, pt asymptomatic at this time; Urine output 5mls for this hour; CV CASTING MACHINE OPERATOR HELPER at bedside, LR bolus infusing at this time,
[2024-01-08] MEDS: NSS IV (12:55)
--- NOTE | 2024-01-08 13:00 | PTCARENOTE ---
Assumed care of patient. Pt assessed while he was lying in bed. Pt alert and oriented x4. Pt denies pain, shortness of breath, nause. FRANKLIN with equal strength. NSR on tele with rates in the 70s. BP stable 83/56. Bilateral radial and DP pulses
palpable. Left hand edema +1. POX 96% on RA. Mediastinal x2 and right & left pleural chest tubes to -20cm suction draining small amount of red fluid. No air leaks, tidaling, crepitus noted. Surgical sites stable. CT dressing CDI. Right IJ cordis and
Right forearm 20g PIV intact. Insulin gtt infusing per critical care glycemic protocol.
[2024-01-08 13:38] LABS: Glucose - Point of Care 116 mg/dl (70-99)
[2024-01-08 13:38] LABS: Glucose - Point of Care 97 mg/dl (70-99)
--- NOTE | 2024-01-08 14:09 | PN.CDI ---
CDI
- -
CDI:
Physician Documentation Request
Admit Date: 01/07/24 14:[address] Surgery,
Please review the following and provide your response in the progress notes.
Clinical Indicators:
- 01/05 PN 'Urinalysis suggestive Benign Bacteriuria'
- 01/03 Urine Culture positive Klebsiella pneumoniae
- 01/06 Porter Luggage 'Abnormal UA...Urine culture positive for Klebsiella pneumonia'
- 01/07 CT Surgery 'Acute postop hematuria'
Please provide further specificity regarding the positive urine culture:
UTI
Acute Pyelitis or Pyelonephritis
Other, please specify
Use of terms such as suspected, likely, concern for, or probable (associated with a specific diagnosis that is being evaluated, monitored, or treated as if it exists) are acceptable and can be coded in the inpatient setting, when documented at the
time of discharge.
Thank you,
Waleska Jay RN
CDI Specialist
Please use your independent medical judgment in providing your response.
--- NOTE | 2024-01-08 14:20 | W.PN.UPDATE ---
Update Note
Progress Note Update
CDI QUERY RESULT
+Klebsiella pneumoniae UTI>Macrobid 100mg BID
[2024-01-08] MEDS: NOVOLOG FLEXPEN 4 UNITS SC ×2 (14:25→17:56)
[2024-01-08] MEDS: MACROBID 100 MG PO ×2 (15:00→20:15)
[2024-01-08 15:03] LABS: Glucose - Point of Care 196 mg/dl (70-99)
[2024-01-08] MEDS: PACERONE PO (16:37)
--- NOTE | 2024-01-08 16:45 | PTCARENOTE ---
Pt reassessed. NSR on tele with rates in the 80s. Hypotensive, CT MORGUE TECHNICIAN notified. Pt denies dizziness. Sitting in the chair. POX 96% on RA. Surgical sites stable. CT output WNL. Acre intact draining ramin urine. Remains on insulin gtt.
[2024-01-08 16:47] LABS: Glucose - Point of Care 153 mg/dl (70-99)
[2024-01-08 17:59] LABS: Glucose - Point of Care 189 mg/dl (70-99)
[2024-01-08] MEDS: NOVOLIN R INSULIN INFUSION 100 IV (18:21)
[2024-01-08 19:20] LABS: Glucose - Point of Care 102 mg/dl (70-99)
--- NOTE | 2024-01-08 20:30 | PTCARENOTE ---
Patient received OOB in chair watching television. Patient A+A+Ox3. No neurological deficits noted. No c/o headache, dizziness or lightheadedness. No s/s of respiratory distress. No c/o SOB. Room air. SaO2 97%. Four chest tubes - Mediastinal
x2 and Right and Left Pleural - Intact and patent - Minimal red drainage - No air leak, tidaling or crepitus. Chest tube dressing intact. Sinus Rhythm. Heart rate 80-90's. No c/o chest pain, pressure or discomfort. Normoactive bowel sounds. No
BM. No c/o nausea. No vomiting. Arce catheter - Temperature sensing - Light ramin, yellow urine - Outputs as documented. Patient able to move all extremities without difficulty. Edema noted to left hand and right lower extremity. Positive
left ulnar pulse. Positive bilateral Dorsalis pedis pulses. Right I.J. Cordis - Intact and patent - Saline 10 ml/hr. Insulin gtt - Glycemic Protocol. Sternal Aquacell intact. Right groin puncture site - Intact - Open to air. Right lower
extremity Aquacell intact. Left upper extremity Aquacell intact. Patient with no c/o back or flank pain. Assessment as documented.
[2024-01-08 21:06] LABS: Glucose - Point of Care 107 mg/dl (70-99)
[2024-01-08] MEDS: LIPITOR 40 MG PO (21:32)
[2024-01-08 23:09] LABS: Glucose - Point of Care 113 mg/dl (70-99)
[2024-01-09] VITALS (18 sets, daily range): BP systolic 86–134; BP diastolic 62–85; PULSE 81; O2SAT 94–97; BMI 26.0
--- NOTE | 2024-01-09 | PTCARENOTE ---
Patient assisted to bed without difficulty. Roxicodone 5 mg PO for pain management 5/10 sternal pain. Patient now sleeping without difficulty. No further changes from previous assessment.
[2024-01-09 01:07] LABS: Glucose - Point of Care 73 mg/dl (70-99)
[2024-01-09 02:16] LABS: Glucose - Point of Care 94 mg/dl (70-99)
[2024-01-09 03:18] LABS: Glucose - Point of Care 94 mg/dl (70-99)
[2024-01-09 04:09] LABS: Glucose - Point of Care 91 mg/dl (70-99)
--- NOTE | 2024-01-09 04:10 | W.PN.CT ---
Today's Communication / Plan
-
-pod #2
-no issues overnight
-CT output: 2 meds 30/135, 2 pleur 0/400 in 12/24 hrs
-transition insulin to SSI
-hx BPH with retention after surgery in the past - started Flomax this am
-d/c a-line
-current meds (ASA, Plavix, Lipitor, Lopressor, Amio, Protonix)
-Will try low dose Norvasc for radial graft when BP permits.
-encourage IS, OOB
Assessment / Plan
-
- Mv-CAD - s/p CABG x 4 (BOBY to LAD, GSV to D2, L RA to OM3, GSV to R PDA); Open harvest of L RA; R EVH on 01/07/[address] Mcdaniel, pod #2
- POST-LIU: LVEF 60% (improved from 45-50% preop), normal valve function, aortic sclerosis w/o stenosis
- HTN/HLD
- DM II (HgA1c 7.1)
- Current smoker (cigars, former cigarettes)
- BPH, hx urinary retention after neck surgery in the past
- Acute postop blood loss anemia - stable without transfusion
- Acute postop atelectasis
- Acute postop hypovolemia with subsequent hypervolemia
- Acute postop hematuria - resolved
- UTI
Subjective
Procedure
- s/p CABG x 4 (BOBY to LAD, GSV to D2, L RA to OM3, GSV to R PDA); Open harvest of L RA; R EVH on 01/07/[address] Mcdaniel
-
Date of Service: January 09, 2024
Objective Data
-
Lab Results
01/09/24 04:03
01/09/24 04:03
PT 17.3 Sec (11.4-14.6) H 01/07/24 14:18
INR 1.41 01/07/24 14:18
APTT Cancelled 01/07/24 06:00
Vital Signs
Vital Signs
Vital Signs
Temp Pulse Resp BP Pulse Ox
98.7 F 87 16 102/64 96
01/09/24 04:00 01/09/24 06:01 01/09/24 04:00 01/09/24 04:00 01/09/24 04:21
CT Intake/Output/Weight
01/08/24 01/08/24 01/09/24
06:59 18:59 06:59
Intake Total 347.2 / 1007.5 659.3 / 1272.6 613.3 / 1272.6
Output Total 1260 / 2170 650 / 1745 1095 / 1745
Balance -912.8 / -1162.5 9.3 / -472.4 -481.7 / -472.4
SaO2: 96
Physical Exam
-
General: AOx3
Cardiovascular: Regular rate & rhythm
Respiratory: Decreased Breath Sounds (b/l bases)
Sternum: Stable
Incision: Clean, Dry and Intact
[2024-01-09] MEDS: NSS 500 IV (04:14)
[2024-01-09 04:36] LABS: Hematocrit 32.7 % (39.0-52.0); Hemoglobin 10.9 g/dL (13.0-18.0); Mean Corp Hgb Conc. 33.3 g/dL (33.0-37.0); Mean Corpuscular Hgb 30.5 pg (27.0-31.0); Mean Corpuscular Volume 91.6 fL (80.0-94.0); Mean Platelet Volume 10.9 fL (7.4-10.4); Platelet Count 153 10^3/uL (130-400); Red Blood Cell Count 3.57 10^6/uL (4.70-6.10); Red Cell Dist. Width 13.5 % (11.5-14.5); White Blood Cell Count 12.7 10^3/uL (4.8-10.8)
[2024-01-09 04:46] LABS: Blood Urea Nitrogen 16 mg/dl (9-20); Calcium 8.5 mg/dl (8.4-10.2); Carbon Dioxide 25 mmol/L (22-30); Chloride 102 mmol/L (98-107); Estimated Creatinine Clearance 96 ml/min; Glucose 89 mg/dl (70-99); Magnesium 2.2 mg/dl (1.6-2.3); Potassium 4.6 mmol/L (3.5-5.1); Sodium 135 mmol/L (135-145); eGFR > 60.00
[2024-01-09 05:29] LABS: Glucose - Point of Care 94 mg/dl (70-99)
[2024-01-09] MEDS: TYLENOL 1000 MG PO ×3 (05:32→22:31)
--- NOTE | 2024-01-09 06:15 | PTCARENOTE ---
Patient A+A+Ox3. No neurological deficits noted. AM lab work collected and sent. Patient given CHG bath and linens changed. Chest tube dressing changed. Arce catheter discontinued at 0600 per protocol. Due to void by 12pm. Portable CXR
completed. OOB to chair. Standing scale 94.4 kg. Assessment/Interventions as documented.
[2024-01-09 07:08] LABS: Glucose - Point of Care 125 mg/dl (70-99)
[2024-01-09] MEDS: NOVOLOG FLEXPEN SC (07:10)
--- NOTE | 2024-01-09 07:42 | W.PN.INTV ---
Today's Communication / Plan
Recommendations
Continue management per surgery
Incentive spirometry, out of bed to chair, pain control
We will sign off. Please call with questions
Assessment
-
68-year-old male with history of diabetes, hypertension, presents with 1 week history of exertional chest pain, belching admitted 01/02/2024 found to have severe calcified multivessel coronary disease, now status post CABG x 4 on 01/07/2024. Of note
postoperative EF 60% compared to 45% preoperatively. We are asked to help from critical care standpoint 01/07/2024
S/p CABG x 4, 01/07/24
Severe multivessel disease, calcified
Hyperglycemia
Abnormal UA
Urine culture positive for Klebsiella pneumonia
Conditions present prior to admission
Diabetes
Hypertension/hyperlipidemia
Plan/recommendations
At this time, patient appears stable
Full exam deferred as patient was on phone during my visit, did not discontinue his phone conversation during my visit therefore full exam was not completed
Appears comfortable, sitting in the chair, conversing without difficulty
Moving forward
Continue with management per CT surgery
Chest x-ray unremarkable
Pain control, incentive spirometry
Follow blood sugars
Insulin drip being weaned off
Patient on norepinephrine and Cardene for left upper extremity radial graft, transition to Norvasc
Norepinephrine is currently being weaned off
Chest tube output minimal. Follow hemoglobin
Abnormal UA, urine culture noted
Treatment per CT surgery
Transfer to telemetry
We will sign off. Please call with questions
Subjective Dataa
Subjective Data
Date of Service:
Date of Service: January 09, 2024
Subjective:
Patient was on the phone during my assessment this morning. Did not, phone for my exam. Appeared comfortable. Conversing without difficulty.
Objective Data
Data Reviewed
Vital Signs / I&O / Oxygen:
Vital Signs
Temp Pulse Resp BP Pulse Ox
98.7 F 87 16 102/64 96
01/09/24 04:00 01/09/24 06:01 01/09/24 04:00 01/09/24 04:00 01/09/24 04:21
Intake and Output
01/08/24 01/09/24 01/10/24
06:59 06:59 06:59
Intake Total 992.3 / 1007.5 1272.6 / 1272.6
Output Total 2095 / 2170 1745 / 1745
Balance -1102.7 / -1162.5 -472.4 / -472.4
SaO2 96
Nasal Cannula flow liters per 2
minute
Physical Exam
General: Comfortable and Other (IJ, chest tube)
HEENT: Normocephalic and Anicteric
Respiratory: Wheeze (No audible wheeze), Stridor (No audible stridor) and Chest Tube
Neurology: Awake, Alert and Other (Conversing on phone)
Labs/Micro/Reports
Lab Data
01/09/24 04:03
01/09/24 04:03
Microbiology
01/07/24 07:41 Urine Urine Culture - Preliminary
01/04/24 10:08 Urine Urine Culture - Final
Klebsiella pneumoniae
--- NOTE | 2024-01-09 08:30 | PTCARENOTE ---
Resumed care of patient. Walking rounds completed with previous RN. Pt assessed while he was sitting in the chair. Pt alert &oriented x4. Pt states sternal pain 1/10. Denies nausea, shortness of breath. FRANKLIN with equal strength throughout. NSR on
tele with rates in the 90s. BP stable 118/66. +Rub. Right radial, left ulnar, bilateral DP pulses palpable. Left hand edeama +1. POX 96% on RA. Lungs diminished in the bases. IS encouraged-1500ml achieved. No cough noted. Mediastinal x2 chest tubes
and right & left pleural chest tubes to -20cm suction draining small amount of serosanguinous fluid. No air leaks, tidaling, crepitus noted. Abdomen soft, round, nontender. +BS. +Gas. Pt due to void post lechuga removal. Sternal incision with
Aquacel-CDI. Chest tube dressing CDI. Left radial incision covered with Aquacel-CDI. Right groin puncture site CDI. Right SVG harvest site covered with Aquacel-CDI. Right IJ cordis intact infusing NSS KVO. Right forearm 20g PIV intact infusing
insulin gtt per critical care glycemic protocol. See MAR for medication administration. See worklist for complete nursing assessment. Plan of care reviewed and patient in agreement.
[2024-01-09] MEDS: BACTROBAN 2% OINTMENT 1 APPLIC NASAL ×2 (08:38→21:02)
[2024-01-09] MEDS: LIDOCAINE 4% PATCH 1 PATCH TOPICAL (08:38)
[2024-01-09] MEDS: PROTONIX 40 MG PO (08:39)
[2024-01-09] MEDS: LOW STRENGTH ASPIRIN 81 MG PO (08:39)
[2024-01-09] MEDS: SENOKOT-S 1 TABLET PO ×2 (08:39→21:01)
[2024-01-09] MEDS: MAGNESIUM OXIDE 500 MG PO ×2 (08:39→21:02)
[2024-01-09] MEDS: GLUCOPHAGE 500 MG PO ×2 (08:39→17:36)
[2024-01-09] MEDS: FLOMAX 0.400000000000000022 MG PO (08:39)
[2024-01-09] MEDS: PLAVIX 75 MG PO (08:39)
[2024-01-09] MEDS: FLUSH (NSS) 1 FLUSH IV (08:39)
[2024-01-09] MEDS: NEURONTIN 100 MG PO ×3 (08:40→22:31)
[2024-01-09] MEDS: LOPRESSOR 12.5 MG PO ×2 (08:40→21:02)
[2024-01-09] MEDS: MACROBID 100 MG PO ×2 (08:40→21:01)
[2024-01-09 09:19] LABS: Glucose - Point of Care 189 mg/dl (70-99)
--- NOTE | 2024-01-09 09:30 | PTCARENOTE ---
4 chest tubes d/c per orders. Sutures tied. New dressing applied. Pt tolerated.
--- NOTE | 2024-01-09 10:11 | CM ---
Reviewed chart. Met [facility] Mr. Lozano to review discharge plans. He states he is feeling great now the the chest tubes are out. He states prior to admission he resides with his spouse in a two story home with two steps to enter. He states he has a
full flight of steps to get to bedroom/full bathroom. He states he has a powder room on the first floor. He states prior to admission he was independent with ambulation and adls. He states he does not have any DME in the home. He states his
spouse will be home to assist in his care if needed. We reviewed a home visit by the Cardiothoracic Transitional Care Nurse. He is agreeable to a home visit. Medical work-up in progress. The discharge plan is to return home with his spouse and a
home visit by the Cardiothoracic Transitional Care Nurse.
[2024-01-09 10:15] LABS: Glucose - Point of Care 166 mg/dl (70-99)
[2024-01-09] MEDS: NORVASC PO (12:03)
[2024-01-09] MEDS: FARXIGA 10 MG PO (12:03)
--- NOTE | 2024-01-09 12:15 | PTCARENOTE ---
Pt reassessed. VSS. NSR on tele with rates in the 80s-90s. BP 86/63. Pt denies dizziness. POX 96% on RA. Surgical sites stable. Pt resting in the chair. Pt voided ramin urine post lechuga catheter removal.
[2024-01-09] MEDS: NOVOLOG FLEXPEN-MODERATE RESISTANCE 1 UNITS SC (13:07)
[2024-01-09 13:09] LABS: Glucose - Point of Care 150 mg/dl (70-99)
--- NOTE | 2024-01-09 15:15 | PTCARENOTE ---
Pt reassessed. VSS. NSR with rates in the 90s. BP stable 103/73. POX 98% on RA. Surgical sites stable. Pt states he feels better and 'less tired' than earlier. Pt ambulated independently to the bathroom to void. Pt tolerated.
[2024-01-09 17:35] LABS: Glucose - Point of Care 140 mg/dl (70-99)
[2024-01-09] MEDS: NOVOLOG FLEXPEN-MODERATE RESISTANCE SC (17:35)
--- NOTE | 2024-01-09 18:07 | W.PN.CD ---
Today's Communication / Plan
-
cont ASA, Plavix, statin
monitor tele
Impression / Plan
-
Coronary artery disease:
-Cath revealed severe 3 v CAD with RCA and LCX occlusion, high grade LAD disease.
-Echocardiogram revealed LVEF of 55-60%, with possible basal inferior/inferolateral hypokinesis and aortic sclerosis without stenosis.
-patient now s/p CABG x 4 (BOBY to LAD, GSV to D2, L RA to OM3, GSV to R PDA) with Dr. Mcdaniel 01/07/24. Per op note, LVEF 60% (improved from 45-50% preop LIU), normal valve function, aortic sclerosis w/o stenosis
-continue ASA, statin, BB, and also on CCB for radial graft
Dyslipidemia.
-cont statin
Type 2 diabetes mellitus;
-Hemoglobin A1c is 7.1%.
-Management as per primary team
Physical Exam
Vital Signs/Labs
Vital Signs
Temp Pulse Resp BP Pulse Ox
98.7 F 63 16 103/73 98
01/09/24 15:21 01/09/24 15:21 01/09/24 15:21 01/09/24 15:21 01/09/24 15:21
01/08/24 01/09/24 01/10/24
06:59 06:59 06:59
Actual Weight 93.9 kg 94.4 kg
01/09/24 04:03
01/09/24 04:03
PT 17.3 Sec (11.4-14.6) H 01/07/24 14:18
INR 1.41 01/07/24 14:18
APTT Cancelled 01/07/24 06:00
Magnesium 2.2 mg/dl (1.6-2.3) 01/09/24 04:03
Triglycerides 80 mg/dl (10-149) 01/03/24 03:08
LDL Cholesterol, Calc 81 mg/dl 01/03/24 03:08
VLDL Cholesterol, Calc 16 mg/dl (0-30) 01/03/24 03:08
HDL Cholesterol 42 mg/dl 01/03/24 03:08
Physical Exam
Constitutional: No acute distress and Comfortable
EENT: Moist mucous membranes
Cardiovascular: Rhythm & rate is regular, Pedal edema is absent, JVD pressure is normal and Systolic murmur absent
Respiratory: Respiratory effort normal and Lungs clear to auscul.
GI: Soft, Distention absent and Flat
Neuro/Psych: AO x 3
Data Reviewed
-
Date of Service: January 09, 2024
EKG: Other (Tele: SR 90s)
Labs: Labs Reviewed by me
[2024-01-09 21:13] LABS: Glucose - Point of Care 135 mg/dl (70-99)
--- NOTE | 2024-01-09 22:14 | PTCARENOTE ---
Received patient for 7p-7a shift. Pt AAOx3, without complaints. VSS, NSR on cardiac cath tech. Pt ambulatory in room. RIJ cordis infusing without issues. Medications administered as ordered. Blood glucose 135. MSI aquacell dressing c/d/i, L forearm
radial site aquacell c/d/i, R groin lanre, R leg aquacell c/d/i. IS up to 1999, denies cough. Instructed pt to call for assistance when getting oob. Will continue to monitor.
[2024-01-09] MEDS: LIPITOR 40 MG PO (22:31)
[2024-01-10] VITALS (11 sets, daily range): BP systolic 99–136; BP diastolic 67–79; PULSE 146; O2SAT 98; BMI 25.8
--- NOTE | 2024-01-10 00:06 | PTCARENOTE ---
Patient reassessed, assessment unchanged from previous. VSS, NSR on shelter monitor. Pt ambulated to bathroom. RIJ cordis infusing without complications. Will continue to monitor.
--- NOTE | 2024-01-10 00:14 | W.PN.CT ---
Today's Communication / Plan
-
-No major issues overnight. Hemodynamically and neurologically intact
-Postop hematuria has resolved
-Klebsiella pneumoniae UTI, treating with Macrobid. f/U repeat urine culture (gram neg. bacilli thus far)
-Cont. current meds (ASA, Plavix, Lipitor, Lopressor, Amio, Metformin, Farxiga, Flomax; Norvasc for radial harvest)
-Diabetes education/management following
-Monitor hyponatremia, 132. Cont. Lasix, fluid restriction
-D/C cordis
-No temporary PW
-Encourage use of IS
-OOB into chair/Ambulate
-Home later today vs tomorrow
Assessment / Plan
-
- Mv-CAD - s/p CABG x 4 (BOBY to LAD, GSV to D2, L RA to OM3, GSV to R PDA); Open harvest of L RA; R EVH on 01/07/[address] Mcdaniel, pod #3
- POST-LIU: LVEF 60% (improved from 45-50% preop), normal valve function, aortic sclerosis w/o stenosis
- HTN/HLD
- DM II (HgA1c 7.1)
- Current smoker (cigars, former cigarettes)
- BPH, hx urinary retention after neck surgery in the past
- Acute postop blood loss anemia - stable without transfusion
- Acute postop atelectasis
- Acute postop hypovolemia with subsequent hypervolemia
- Acute postop hematuria - resolved
- Acute postop UTI
- Acute postop hyponatremia, 132
Discussed patient care with: Cardiology, Nursing, Respiratory Therapy, Pharmacy and Care Team
Subjective
Procedure
- s/p CABG x 4 (BOBY to LAD, GSV to D2, L RA to OM3, GSV to R PDA); Open harvest of L RA; R EVH on 01/07/[address] Mcdaniel
-
Date of Service: January 10, 2024
Pt c/o mild incisional pain, otherwise feel well
Objective Data
-
PT 17.3 Sec (11.4-14.6) H 01/07/24 14:18
INR 1.41 01/07/24 14:18
APTT Cancelled 01/07/24 06:00
Vital Signs
Vital Signs
Temp Pulse Resp BP Pulse Ox
98.1 F 89 20 98/70 97
01/09/24 23:56 01/09/24 23:56 01/09/24 23:56 01/09/24 23:49 01/09/24 23:56
CT Intake/Output/Weight
01/09/24 01/09/24 01/10/24
06:59 18:59 06:59
Intake Total 613.3 / 1272.6 32.4 / 72.4 40 / 72.4
Output Total 1095 / 1745 350 / 650 300 / 650
Balance -481.7 / -472.4 -317.6 / -577.6 -260 / -577.6
SaO2: 97 (RA)
Physical Exam
-
General: Awake, Oriented and AOx3
Cardiovascular: Regular rate & rhythm, No Murmurs, No Rub and No Gallop
Respiratory: Decreased Breath Sounds (at bases)
Sternum: Stable
Incision: Clean, Dry, Intact and Dressing Intact
Extremities: Other (+trace edema)
Data Reviewed
-
Lab Results: Results Reviewed
Medications: Active Meds Reviewed
Chest X-Ray: Report Reviewed and Image Reviewed
ECG: Report Reviewed and Image Reviewed
[2024-01-10 04:30] LABS: Hematocrit 33.1 % (39.0-52.0); Hemoglobin 11.4 g/dL (13.0-18.0); Mean Corp Hgb Conc. 34.4 g/dL (33.0-37.0); Mean Corpuscular Hgb 30.6 pg (27.0-31.0); Mean Platelet Volume 10.7 fL (7.4-10.4); Platelet Count 178 10^3/uL (130-400); Red Blood Cell Count 3.72 10^6/uL (4.70-6.10); Red Cell Dist. Width 13.3 % (11.5-14.5); White Blood Cell Count 12.4 10^3/uL (4.8-10.8)
[2024-01-10 04:59] LABS: Blood Urea Nitrogen 17 mg/dl (9-20); Calcium 8.7 mg/dl (8.4-10.2); Carbon Dioxide 25 mmol/L (22-30); Chloride 101 mmol/L (98-107); Estimated Creatinine Clearance 109 ml/min; Glucose 105 mg/dl (70-99); Magnesium 2.2 mg/dl (1.6-2.3); Potassium 4.7 mmol/L (3.5-5.1); Sodium 132 mmol/L (135-145); eGFR > 60.00
--- NOTE | 2024-01-10 05:05 | PTCARENOTE ---
Patient reassessed, assessment unchanged from previous. VSS, NSR on potline monitor. Labs drawn and sent. CHG cloth bath done. Pt ambulatory in room, oob in chair. Medications administered as ordered. Pt denies pain at this time. Will continue to
monitor.
[2024-01-10] MEDS: TYLENOL 1000 MG PO (05:41)
[2024-01-10] MEDS: NOVOLOG FLEXPEN-MODERATE RESISTANCE SC ×2 (07:00→17:24)
[2024-01-10] MEDS: NEURONTIN 100 MG PO ×3 (08:49→22:17)
[2024-01-10] MEDS: FLOMAX 0.400000000000000022 MG PO (08:49)
[2024-01-10] MEDS: LOW STRENGTH ASPIRIN 81 MG PO (08:50)
[2024-01-10] MEDS: PROTONIX 40 MG PO (08:50)
[2024-01-10] MEDS: FARXIGA 10 MG PO (08:50)
[2024-01-10] MEDS: MAGNESIUM OXIDE 500 MG PO ×2 (08:50→19:54)
[2024-01-10] MEDS: MACROBID 100 MG PO ×2 (08:50→19:59)
[2024-01-10] MEDS: PLAVIX 75 MG PO (08:51)
[2024-01-10] MEDS: LOPRESSOR 12.5 MG PO ×2 (08:51→09:23)
[2024-01-10] MEDS: GLUCOPHAGE 500 MG PO ×2 (08:51→17:22)
[2024-01-10] MEDS: NORVASC 2.5 MG PO (08:52)
[2024-01-10] MEDS: SENOKOT-S 1 TABLET PO ×2 (08:52→20:02)
[2024-01-10] MEDS: BACTROBAN 2% OINTMENT 1 APPLIC NASAL ×3 (08:53→19:59)
[2024-01-10] MEDS: NSS IV (08:55)
--- NOTE | 2024-01-10 09:15 | PTCARENOTE ---
patient went into rapid afib while having BM in bathroom. HR 200. PA aware. pt only slightly light headed but vss. back in chair and orders being received from Tanja ZULUAGA.
[2024-01-10] MEDS: PACERONE 200 MG PO ×3 (09:23→22:16)
[2024-01-10] MEDS: CORDARONE 103 MG IV (09:39)
[2024-01-10] MEDS: LIDOCAINE 4% PATCH TOPICAL (09:48)
[2024-01-10] MEDS: LOPRESSOR 5 MG IV (09:48)
[2024-01-10] MEDS: CORDARONE 518 MG IV (10:49)
--- NOTE | 2024-01-10 11:16 | PTCARENOTE ---
PO/IV amio, PO/IV lopressor given per orders.
[2024-01-10 12:21] LABS: Glucose - Point of Care 171 mg/dl (70-99)
[2024-01-10] MEDS: NOVOLOG FLEXPEN-MODERATE RESISTANCE 1 UNITS SC (12:21)
--- NOTE | 2024-01-10 16:30 | PTCARENOTE ---
Assumed care of patient. Pt ambulating in the halls with family. NSR on tele with rates in the 80s. BP stable 133/78. POX 99% Surgical sites stable. Pt denies pain. Family at bedside.
[2024-01-10] MEDS: TYLENOL PO ×2 (17:25→22:18)
[2024-01-10 17:26] LABS: Glucose - Point of Care 124 mg/dl (70-99)
[2024-01-10] MEDS: LOPRESSOR 37.5 MG PO (19:55)
--- NOTE | 2024-01-10 20:00 | PTCARENOTE ---
Bedside walking rounds report received. Patient seen on rounds oob in chair on room air and with amiodarone gtt infusing via right IJ cordis: currently NSR to ST with exertion. Denies pain. Accompanied patient for ambulation in simon 450feet without
difficulty.See flowrecord for remaining assessments.
[2024-01-10] MEDS: LIPITOR 40 MG PO (22:17)
[2024-01-11] VITALS (8 sets, daily range): BP systolic 98–120; BP diastolic 63–79; BMI 25.4
--- NOTE | 2024-01-11 | PTCARENOTE ---
No acute changes. Vitals stable. NSR with rates in the 70's to 80's.
--- NOTE | 2024-01-11 03:45 | W.PN.CT ---
Today's Communication / Plan
-
-No major issues overnight. Hemodynamically and neurologically intact
-Postop hematuria has resolved
-Klebsiella pneumoniae UTI, treating with Macrobid
-Unfortunately had ~3hrs of a-fib with RVR yesterday 01/09, started and remains on Amiodarone gtt. Lopressor increased to 37.5 mg BID
-Will discuss DOAC if further a-fib
-Cont. current meds (ASA, Plavix, Lipitor, Lopressor, Amio, Metformin, Farxiga, Flomax; Norvasc for radial harvest)
-Diabetes education/management following
-Monitor hyponatremia, improved from 132 to 134. Cont. Lasix, fluid restriction
-D/C cordis
-No temporary PW
-Encourage use of IS
-OOB into chair/Ambulate
-D/C home today
Assessment / Plan
-
- Mv-CAD - s/p CABG x 4 (BOBY to LAD, GSV to D2, L RA to OM3, GSV to R PDA); Open harvest of L RA; R EVH on 01/07/[address] Mcdaniel, pod #4
- POST-LIU: LVEF 60% (improved from 45-50% preop), normal valve function, aortic sclerosis w/o stenosis
- HTN/HLD
- DM II (HgA1c 7.1)
- Current smoker (cigars, former cigarettes)
- BPH, hx urinary retention after neck surgery in the past
- Acute postop blood loss anemia - stable without transfusion
- Acute postop atelectasis
- Acute postop hypovolemia with subsequent hypervolemia
- Acute postop hematuria - resolved
- Pre and postop UTI (Klebsiella Pneumoniae)
- Acute postop hyponatremia, 132
Discussed patient care with: Cardiology, Nursing, Respiratory Therapy, Pharmacy and Care Team
Subjective
Procedure
- s/p CABG x 4 (BOBY to LAD, GSV to D2, L RA to OM3, GSV to R PDA); Open harvest of L RA; R EVH on 01/07/[address] Mcdaniel
-
Date of Service: January 11, 2024
Pt c/o mild incisional pain, otherwise feels well
Objective Data
-
PT 17.3 Sec (11.4-14.6) H 01/07/24 14:18
INR 1.41 01/07/24 14:18
APTT Cancelled 01/07/24 06:00
Vital Signs
Vital Signs
Temp Pulse Resp BP Pulse Ox
98.1 F 77 18 117/70 93
01/11/24 01:08 01/11/24 02:00 01/11/24 01:08 01/11/24 01:08 01/11/24 01:08
CT Intake/Output/Weight
01/10/24 01/10/24 01/11/24
06:59 18:59 06:59
Intake Total 80 / 112.4 250 / 384 134 / 384
Output Total 600 / 950 850 / 850
Balance -520 / -837.6 -600 / -466 134 / -466
SaO2: 93 (RA)
Physical Exam
-
General: Awake, Oriented and AOx3
Cardiovascular: Regular rate & rhythm, No Murmurs, No Rub and No Gallop
Respiratory: Decreased Breath Sounds (at bases, otherwise clear)
Sternum: Stable
Incision: Clean, Dry, Intact and Dressing Intact
Extremities: No Edema
Data Reviewed
-
Lab Results: Results Reviewed
Medications: Active Meds Reviewed
Chest X-Ray: Report Reviewed and Image Reviewed
ECG: Report Reviewed and Image Reviewed
[2024-01-11] MEDS: FLEXERIL 5 MG PO (04:29)
--- NOTE | 2024-01-11 04:30 | PTCARENOTE ---
No acute changes. Labs drawn. OOB to chair.
[2024-01-11 04:52] LABS: Hematocrit 31.6 % (39.0-52.0); Hemoglobin 11.1 g/dL (13.0-18.0); Mean Corp Hgb Conc. 35.1 g/dL (33.0-37.0); Mean Corpuscular Hgb 30.9 pg (27.0-31.0); Mean Platelet Volume 10.6 fL (7.4-10.4); Platelet Count 212 10^3/uL (130-400); Red Blood Cell Count 3.59 10^6/uL (4.70-6.10); Red Cell Dist. Width 13.2 % (11.5-14.5); White Blood Cell Count 10.4 10^3/uL (4.8-10.8)
[2024-01-11 05:17] LABS: Blood Urea Nitrogen 19 mg/dl (9-20); Calcium 8.6 mg/dl (8.4-10.2); Carbon Dioxide 24 mmol/L (22-30); Chloride 103 mmol/L (98-107); Estimated Creatinine Clearance 109 ml/min; Glucose 112 mg/dl (70-99); Magnesium 2.2 mg/dl (1.6-2.3); Potassium 4.4 mmol/L (3.5-5.1); Sodium 134 mmol/L (135-145); eGFR > 60.00
[2024-01-11] MEDS: TYLENOL PO (06:15)
[2024-01-11] MEDS: SENOKOT-S PO (06:57)
[2024-01-11] MEDS: NOVOLOG FLEXPEN-MODERATE RESISTANCE SC (07:30)
[2024-01-11 07:31] LABS: Glucose - Point of Care 111 mg/dl (70-99)
[2024-01-11] MEDS: LOW STRENGTH ASPIRIN 81 MG PO (07:45)
[2024-01-11] MEDS: MACROBID 100 MG PO (07:45)
[2024-01-11] MEDS: FLUSH (NSS) 1 FLUSH IV (07:45)
[2024-01-11] MEDS: GLUCOPHAGE 500 MG PO (07:45)
--- NOTE | 2024-01-11 07:45 | PTCARENOTE ---
Resumed care of patient. Pt assessed while he was sitting in the chair. Pt alert and oriented x4. Pt denies pain, shortness of breath, and nausea. Independent in the room and halls. NSR on tele with rates in the 80s-90s. BP stable 98/76. Heart tones
audible. Right radial, left ulnar, and bilateral DP pulses palpable. No edema noted. POX 96% on RA. Lungs diminished in the bases. No cough. IS 3000mL. Abdomen soft, round, nontender. Tolerating diet. +BM +BS. Pt voiding ramin urine in the urinal.
Sternal incision covered with Aquacel-CDI. Old chest tube sites covered CDI. 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 Right knee incision with Aquacel-CDI. Left radial incision with Aquacel-CDI. Right IJ cordis intact infusing KVO and Amio. Right forearm PIV
intact. See MAR for medication administration. See worklist for complete nursing assessment. Plan of care reviewed and patient in agreement.
[2024-01-11] MEDS: PLAVIX 75 MG PO (07:46)
[2024-01-11] MEDS: LIDOCAINE 4% PATCH TOPICAL (07:46)
[2024-01-11] MEDS: FARXIGA 10 MG PO (07:46)
[2024-01-11] MEDS: FLOMAX 0.400000000000000022 MG PO (07:46)
[2024-01-11] MEDS: PACERONE 200 MG PO (07:46)
[2024-01-11] MEDS: LOPRESSOR 37.5 MG PO (07:46)
[2024-01-11] MEDS: MAGNESIUM OXIDE 500 MG PO (07:46)
[2024-01-11] MEDS: PROTONIX 40 MG PO (07:46)
[2024-01-11] MEDS: NEURONTIN 100 MG PO (07:46)
--- NOTE | 2024-01-11 09:15 | PTCARENOTE ---
Pt received back from 2 view CXR. Assisted to complete the stairs, pt tolerated well. Assisted back to bed. Right IJ cordis d/c. Pt tolerated. All Aquacel dressings removed. Pt OOB to chair.
[2024-01-11] MEDS: NORVASC 2.5 MG PO (09:23)
--- NOTE | 2024-01-11 11:00 | PTCARENOTE ---
Vitals stable. Pt assisted to shower. Pt tolerated. Discharge order received. Awaiting pt's to review discharge instructions.
--- NOTE | 2024-01-11 12:26 | W.DCSUMMARY ---
Discharge Summary
Discharge Data
Date of Admission: 01/02/24
Date of Discharge: 01/11/24
-
Pending Results: No
Hospital Course
Primary care physician: Pauline Rangel PA-C
Outpatient power reactor supervisor: Jesus
Inpatient consultants: [facility] cardiology
Procedures:
1. 01/02/24 Left heart catheterization by Dr. Andrea Lucio
2. 01/07/24 Coronary artery bypass grafing x4 by Dr. Fernando Mcdaniel
Primary Diagnosis:
1. Unstable angina
2. Multivessel coronary artery disease
Secondary Diagnoses:
1. Hyperlipidemia
2. Ylr-bcvfbrn-zfbtddjhn diabetes
3. Urinary frequency, suspected benign prostatic hypertrophy
4. Preoperative asymptomatic bacteriuria, treated with Macrobid x 5 days (Klebsiella pneumoniae)
5. Acute postop blood loss anemia
6. Postoperative atrial fibrillation x 2.5 hours on postop day 3
HPI: Patient is a 68-year-old male who was sent to the ED by his PCP with complaints of worsening chest discomfort over the past few weeks. EKG demonstrated T wave inversions and he was admitted for observation to rule out acute coronary syndrome.
Troponin was negative but due to concerning nature of symptoms he was taken to the [facility] on 01/01 for left heart catheterization which demonstrated severe multivessel coronary artery disease. Echo demonstrated preserved ejection fraction with no
significant valve disease. CT surgery was consulted for evaluation for CABG. After all preoperative workup was completed he was deemed a suitable candidate to undergo the procedure.
Hospital course: On 01/07/2024 patient was taken to [facility] where he underwent a coronary artery bypass grafting x 4 with SCHROEDER to LAD, left radial artery to OM 3, saphenous vein graft to D2, and saphenous vein graft to RPDA without any perioperative
complications. He was transferred to CVICU on Cardene for his radial graft as well as low-dose Levophed to maintain blood pressure. he remained hemodynamically stable and was extubated approximately 5 PM.� He was started on baby aspirin as well as
Norvasc for his radial graft. On postop day 1 Arce was maintained due to suspected BPH and history of urinary retention after procedure in the past. Patient was started on Flomax preemptively. Perioperative urine culture demonstrated Klebsiella
pneumoniae. Patient remains asymptomatic from a urinary standpoint but Macrobid 100 mg p.o. twice daily x 5 days was initiated. Plavix started for graft patency. On postop day 2 his chest tubes were discontinued without insulin insulin transition
to his home metformin and new Farxiga. He is progressing well and ambulating with cardiac rehab. On postop day 3 beta-blockers titrated up, but he still unfortunately went into atrial fibrillation with RVR with heart rates to 200bpm. He was
relatively asymptomatic while in A-fib, he was started on IV amiodarone bolus and drip and converted after 2 hours. Blood pressure is tolerating higher beta-missy dose. He remains ambulatory with no recurrence of A-fib. On postop day 4 he is in
sinus rhythm 2 view chest x-ray demonstrates a small left effusion. He is discharged home with close follow-up with transitional care nurse from [facility] who will see him in a few days.
Home medication changes: Crestor changed to lipitor. New Rx ASA/plavix for CAD/graft patency. New Rx norvasc for radial graft spasm (x1 year). New Rx amiodarone 200mg BID x 2 weeks, then once daily for limited postop afib. Lopressor BID for BP & HR
control. Flomax for urinary frequency & suspected BPH.
Discharge Plan
-
Patient Disposition: Home (Routine Discharge)
Discharge Diagnosis/Procedures: unstable angina, multivessel coronary artery disease; s/p CABG x4
Condition: Good
Diet: Low Cholesterol, Low Sodium and Diabetic, Carb Controlled
Activity: No strenuous activity
Driving Restrictions: Not until seen by your Dr
Bathing Restrictions: OK to Shower
Other Services: Cardiac Rehab
Specialty Instructions: Weigh Daily- Call MD for wt gain/loss 3 lbs overnight/5 lbs in 1 week
Activity Restrictions/Additional Instructions:
ACTIVITY:
-No strenuous activity: no heavy lifting, pushing, pulling anything over 15 pounds for one month
-continue to use stairs as tolerated
DRIVING RESTRICTIONS:
-No driving for one month or until approved by your surgeon
WOUND CARE:
-Shower daily. Use soap & water.
-No lotions, creams or powders on incision area.
DIET:
-continue a low fat/low cholesterol diet.
-IF you are diabetic, continue carb controlled diet.
CARDIAC REHAB:
-Please make appointment to start in 5-6 weeks with your local hospital program. (See Cardiac Rehabilitation Discharge Booklet).
SPECIALTY INSTRUCTIONS:
-Weigh yourself daily. Call your physician for any weight gain/loss of 3 lbs overnight or 5 lbs in one week.
-REPORT any clicking noise or uneven appearance of your sternum to your surgeon immediately.
-If you smoke, you are instructed to quit. The [place] smoking hotline phone number is [phone]
Referrals:
CT Transitional Care Nurse [Outside] - in one to two days
(
The Cardiothoracic Transitional Care Nurse will call you to set up a visit in 1-2 days.)
[facility]. Cardiac Rehab [Outside] - 02/20/24 10:00 am
(Cardiac Rehab Orientation appointment is on 02/20/2024 at 10 AM.
The Cardiac Rehab gym is located on the first floor of the [facility]ovascular [facility].)
Kasie Baires NP [Specified Professional Personl] - 02/16/24 2:00 pm
Pauline Rangel PA-C [Family Provider] - in four to six weeks (Please make an appointment in four to six weeks.)
Fernando Mcdaniel MD [Active] - 02/10/24 1:30 pm
Prescriptions:
New
acetaminophen 325 mg Tablet
650 mg PO Q6HPRN PRN (Reason: mild pain,headache,temp >101F ) Qty: 0 0RF
nitrofurantoin monohyd/m-cryst 100 mg Capsule
100 mg PO BID Qty: 3 0RF
Rx Instructions:
finish Rx for total of 5 day course
amiodarone [Pacerone] 200 mg Tablet
200 mg PO BID Qty: 90 0RF
Rx Instructions:
Take twice daily for 2 weeks (until 01/24), then once daily until otherwise directed
clopidogrel 75 mg Tablet
75 mg PO DAILY Qty: 30 1RF
amlodipine 2.5 mg Tablet
2.5 mg PO DAILY Qty: 30 1RF
atorvastatin 40 mg Tablet
40 mg PO HS Qty: 30 1RF
sennosides-docusate sodium [Stool Softener-Stimulant Laxat] 8.6-50 mg Tablet
1 tab PO Q12 PRN (Reason: Constipation) Qty: 0 0RF
aspirin [Children's Aspirin] 81 mg Tablet,Chewable
81 mg PO DAILY Qty: 30 1RF
metoprolol tartrate 25 mg Tablet
37.5 mg PO Q12 Qty: 90 1RF
dapagliflozin propanediol 10 mg Tablet
10 mg PO DAILY Qty: 30 1RF
cyclobenzaprine 10 mg Tablet
5 mg PO Q8HPRN PRN (Reason: muscle spasm) Qty: 14 0RF
tamsulosin 0.4 mg Capsule
0.4 mg PO DAILY Qty: 30 1RF
Continued
metformin 500 mg Tablet
500 mg PO BIDWMEAL
Discontinued
rosuvastatin 5 mg Tablet
5 mg PO Q72H
Patient Comments:
01/02/2024, pt. takes Q72H@0800 and next dose is due for tomorrow (01/03/2024) per pt.
Discharge Orders:
Discharge Patient (As Directed); Ordered 01/11/24
Ordered By: Tanja Suazo
Care Plan Goals
Care Plan Goals:
Problem: Readiness for enhanced knowledge related to diagnosis and treatment plan
Goal: Understand your diagnosis and treatment plan needs, including medications if applicable.
Instructions: Know your diagnosis, underlying causes and treatment plan options, including medications if applicable. Consult with your health care team to learn about your diagnosis and treatment plan, including medications if applicable.
Discharge Date and Time
Discharge Date/Time: 01/11/24 12:11
Print Language: [place]EN[place]
--- NOTE | 2024-01-11 14:40 | CM ---
Received message. Mr. Blake Nesbitt cost $489.00 at [facility]. Telephone call to [facility] to give him the Free month coupon for Mohit. Mohit coupon went thru. Telephone call to Mrs. Lozano to review and [facility] will give her a refund. Mrs.
Blake is going to call with Pharmacy benefit information so I can check his plans coverage on Friday. He nay have a deductible that has to be met.
--- NOTE | 2024-01-12 10:08 | CM ---
Reviewed chart. Telephone call to [facility], ([phone]) to check on co-pay for Mohit. He has a deductible of $545.00 which he still has $521.82 left. So he would have to pay $489.34 for his firt script until his deductible has
been met. After his deductible has been met his co-pay would be $11.00 a month or $33.00 for three months. Reviewed the above with Mamie Blake.
== END 2024-01-11 12:11 | disposition home or self-care (01) | DRG 234 ==
LOC: CVICU 14:22
PROVIDERS: Anesthesiology; Internal Medicine; Internal Medicine Cardiovascular Disease; Nurse Practitioner; Nurse Practitioner Adult Health; Physician Assistant; Physician Assistant Surgical; ADMITTING PHYSICIAN Internal Medicine; ATTENDING PHYSICIAN Thoracic Surgery (Cardiothoracic Vascular Surgery); CONSULT PHYSICIAN Internal Medicine; CONSULT PHYSICIAN Internal Medicine Critical Care Medicine; EMERGENCY PHYSICIAN Emergency Medicine; FAMILY PHYSICIAN Student in an Organized Health Care Education/Training Program
PROC: B2151ZZ Fluoroscopy of Left Heart using Low Osmolar Contrast (ICD-10-PCS; 2024-01-02)
PROC: 4A023N7 Measurement of Cardiac Sampling and Pressure, Left Heart, Percutaneous Approach (ICD-10-PCS; 2024-01-02)
PROC: B2111ZZ Fluoroscopy of Multiple Coronary Arteries using Low Osmolar Contrast (ICD-10-PCS; 2024-01-02)
PROC: 02100AW Bypass Coronary Artery, One Artery from Aorta with Autologous Arterial Tissue, Open Approach (ICD-10-PCS; 2024-01-07)
PROC: 03BC0ZZ Excision of Left Radial Artery, Open Approach (ICD-10-PCS; 2024-01-07)
PROC: 06BP4ZZ Excision of Right Saphenous Vein, Percutaneous Endoscopic Approach (ICD-10-PCS; 2024-01-07)
PROC: 5A1221Z Performance of Cardiac Output, Continuous (ICD-10-PCS; 2024-01-07)
PROC: 021109W Bypass Coronary Artery, Two Arteries from Aorta with Autologous Venous Tissue, Open Approach (ICD-10-PCS; 2024-01-07)
PROC: B24BZZ4 Ultrasonography of Heart with Aorta, Transesophageal (ICD-10-PCS; 2024-01-07)
PROC: 02100ZC Bypass Coronary Artery, One Artery from Thoracic Artery, Open Approach (ICD-10-PCS; 2024-01-07)
DX: I25.110 Atherosclerotic heart disease of native coronary artery with unstable angina pectoris (principal); N39.0 Urinary tract infection, site not specified; D62 Acute posthemorrhagic anemia; J98.11 Atelectasis; E87.1 Hypo-osmolality and hyponatremia; E78.00 Pure hypercholesterolemia, unspecified; K21.9 Gastro-esophageal reflux disease without esophagitis; E11.65 Type 2 diabetes mellitus with hyperglycemia; B96.1 Klebsiella pneumoniae [K. pneumoniae] as the cause of diseases classified elsewhere; N40.1 Benign prostatic hyperplasia with lower urinary tract symptoms; R33.8 Other retention of urine; I10 Essential (primary) hypertension; I48.91 Unspecified atrial fibrillation; R35.0 Frequency of micturition; E86.1 Hypovolemia; E87.70 Fluid overload, unspecified; R31.9 Hematuria, unspecified; Z79.84 Long term (current) use of oral hypoglycemic drugs; Z79.899 Other long term (current) drug therapy; Z82.49 Family history of ischemic heart disease and other diseases of the circulatory system; Z98.1 Arthrodesis status; Z87.891 Personal history of nicotine dependence
CPT/HCPCS: 71045; 71046; 80048; 80053; 80061; 81003; 81015; 82248; 82330; 82565; 82805; 82947; 82962; 83036; 83690; 83735; 84132; 84302; 84484; 84520; 85014; 85018; 85025; 85027; 85049; 85610; 85730; 86803; 86850; 86900; 86901; 86920; 87077; 87086; 87186; 93005; 93306; 93312; 93320; 93325; 93458; 93880; 94002; 99284; C1894; P9045; Q9967

== ENCOUNTER 2024-02-26 10:30 | Outpatient (RCR) | payer MEDICARE, OTHER, SELFPAY ==
[2024-02-20 12:09] LABS: Glucose - Point of Care 136 mg/dl (70-99)
[2024-02-20 12:33] LABS: Glucose - Point of Care 116 mg/dl (70-99)
[2024-02-24 10:38] LABS: Glucose - Point of Care 106 mg/dl (70-99)
[2024-02-26 10:14] LABS: Glucose - Point of Care 118 mg/dl (70-99)
[2024-02-26 11:11] LABS: Glucose - Point of Care 88 mg/dl (70-99)
== END 2024-02-26 23:59 | disposition home or self-care (01) ==
LOC: CRHB 10:30
PROVIDERS: ATTENDING PHYSICIAN Internal Medicine
DX: I25.10 Atherosclerotic heart disease of native coronary artery without angina pectoris (principal); Z95.1 Presence of aortocoronary bypass graft
CPT/HCPCS: 82962; G0422; G0423

== ENCOUNTER 2024-03-12 00:09 | Emergency (ER) | payer MEDICARE, OTHER, SELFPAY ==
[2024-03-12 00:19] VITALS: BP 94/62
[2024-03-12 01:03] LABS: % Basophils 0.2 % (0-2); % Eosinophils 0.4 % (0-6); % Immature Granulocytes 0.5 % (0-0.5); % Lymphocytes 5.9 % (20.5-51.1); % Monocytes 3.3 % (1.7-9.3); % Neutrophils 89.7 % (42.2-75.2); Absolute Immature Granulocytes 0.1 10^3/uL (0-0.05); Absolute Lymphocytes 0.6 10^3/uL (1.2-3.4); Absolute Monocytes 0.3 10^3/uL (0.1-0.6); Absolute Neutrophils 8.9 10^3/uL (1.4-6.5); Hematocrit 38.9 % (39.0-52.0); Hemoglobin 13.1 g/dL (13.0-18.0); Mean Corp Hgb Conc. 33.7 g/dL (33.0-37.0); Mean Corpuscular Hgb 29.2 pg (27.0-31.0); Mean Corpuscular Volume 86.6 fL (80.0-94.0); Mean Platelet Volume 9.8 fL (7.4-10.4); Nucleated Red Blood Cells % 0 % (-); Platelet Count 256 10^3/uL (130-400); Red Blood Cell Count 4.49 10^6/uL (4.70-6.10)
[2024-03-12] MEDS: TYLENOL 1000 MG PO (01:09)
[2024-03-12 01:10] LABS: Urine Albumin Negative (Neg - Trace); Urine Bilirubin Negative (Negative); Urine Character Clear (Clear); Urine Color Yellow; Urine Glucose 3+ (Negative); Urine Ketone Trace (Negative); Urine Leukocyte 1+ (Negative); Urine Nitrite Positive (Negative); Urine Occult Blood Trace (Negative); Urine Urobilinogen Negative (Neg - 1+)
[2024-03-12 01:19] VITALS: BMI 24.2
[2024-03-12 01:21] LABS: ALT (SGPT) 22 U/L (0-50); AST (SGOT) 23 U/L (17-59); Albumin 4.3 g/dl (3.5-5.0); Alkaline Phosphatase 66 U/L (38-126); Blood Urea Nitrogen 21 mg/dl (9-20); Calcium 9.5 mg/dl (8.4-10.2); Carbon Dioxide 25 mmol/L (22-30); Chloride 103 mmol/L (98-107); Estimated Creatinine Clearance 87 ml/min; Glucose 106 mg/dl (70-99); Sodium 137 mmol/L (135-145); Total Bilirubin 0.9 mg/dl (0.2-1.3); Total Protein 6.8 g/dl (6.3-8.2); eGFR > 60.00
[2024-03-12 01:22] VITALS: BP 101/62
[2024-03-12 01:41] LABS: Urine Bacteria Many (Negative)
--- NOTE | 2024-03-12 01:46 | ED.GENMED ---
History of Present Illness
General
Chief Complaint: Fever
Source: patient and spouse
Exam Limitations: none
Time Seen by Provider: 03/12/24 01:13
History of Present Illness
History of Present Illness:
Six 8-year-old male who presents after he developed shakes at home. His was in [facility]. The first event lasted about 15 to 20 minutes. A few hours later then occurred again. He tried taking his temperature but only had a
thermometer that went across the forehead and he states it seemed normal. No vomiting. No back pain. No abdominal pain. Does admit that last night he urinated very frequently. He denies burning or dysuria. No hematuria.
Past History
Past History
ED Past Medical History: Arrthythmia (Atrial fibrillation), CAD, HTN, Hypercholesterolemia, NIDDM and Other (BPH)
ED Past Surgical History: Appendectomy, Cardiac and Orthopedic
Phy Exam
Physical Exam
Physical Exam:
CONSTITUTIONAL Patient alert and oriented to person, place and time. Well-appearing. Vital signs reviewed.
HEAD atraumatic, normocephalic.
EYES eyelids normal to inspection, Extraocular muscles intact, Conjunctiva normal, Sclera normal.
NECK normal range of motion, Trachea midline, no jugular venous distention.
RESPIRATORY CHEST No respiratory distress noted, Chest expansion equal, Bilateral breath sounds clear.
CARDIOVASCULAR regular rate and rhythm, Heart sounds normal.
ABDOMEN abdomen nontender, Bowel sounds normal. No distention.
BACK normal inspection, no obvious deformities, no CVA tenderness
UPPER EXTREMITY range of motion normal, Motor strength normal, no cyanosis, no edema.
LOWER EXTREMITY range of motion normal, Motor strength normal, no cyanosis, no edema.
NEURO Speech normal, No focal motor deficits, [place] coma scale 15, Memory normal, Cranial Nerves intact to screening exam.
SKIN skin warm, dry, and normal in color.
PSYCHIATRIC patient oriented to person place and time, Normal affect.
Course
Orders/Labs/Results
Orders:
Orders
03/12/24 00:27
Electrocardiogram (*1) Urgent
Reason for Study: Other
Other Reason for Exam: Possible Sepsis
Cardiac Monitoring- Treatment ONCE
IV Insert/Care/Rem.- Treatment PRN
Straight cath- Treatment ONCE
O2 Therapy [RESP] Urgent
Titrate/Wean O2 to maintain O2 sat greater than (%): 93
Special Instructions: TO MAINTAIN CONTINUOUS O2 SATS > OR = 93%
Pulse Ox/cont/shift [RESP] Urgent
Quantity: 1
Special Instructions: CONTINUOUS
03/12/24 00:28
EKG- Treatment ONCE
03/12/24 00:41
Acetaminophen [Tylenol] 1,000 mg .ROUTE .STK-MED ONE
03/12/24 00:56
Complete Blood Count/With Diff Urgent
Comprehensive Metabolic Panel Urgent
Urinalysis Reflex To Culture Urgent
Date Specimen was Collected: 03/12/24
Time Specimen was Collected: 00:28
Urine Microscopic Reflex Cult Urgent
Urine Culture Urgent
BRENNAN Source: U
Specimen Description:
Date Specimen was Collected: 03/12/24
Time Specimen was Collected: 00:28
03/12/24 01:09
Acetaminophen [Tylenol] 1,000 mg PO NOW STA
03/12/24 01:20
Lactic Acid Q4H
Comment: ON ICE, CANCEL 2ND ORDER IF FIRST LACTIC ACID LEVEL <2
03/12/24 01:44
CefTRIAXone [Rocephin] 2,000 mg IV NOW STA
03/12/24 01:46
Lactate Level [Lactic Acid] Routine
Comment: ,
03/12/24 01:57
Sterile Water [Sterile Water For Injection] 20 ml .ROUTE .STK-MED
Abnormal Lab Results
03/12/24
00:56
RBC 4.49 L 10^6/uL
(4.70-6.10)
Hct 38.9 L %
(39.0-52.0)
Abs Immat Gran (auto) 0.1 H 10^3/uL
(0-0.05)
Absolute Neuts (auto) 8.9 H 10^3/uL
(1.4-6.5)
Absolute Lymphs (auto) 0.6 L 10^3/uL
(1.2-3.4)
Neutrophils % 89.7 H %
(42.2-75.2)
Lymphocytes % 5.9 L %
(20.5-51.1)
BUN 21 H mg/dl
(9-20)
Glucose 106 H mg/dl
(70-99)
Urine Ketones Trace A
(Negative)
Ur Occult Blood Reflex Trace A
(Negative)
Urine Nitrite (Reflex) Positive A
(Negative)
Leukocyte Esterase Rfl 1+ A
(Negative)
Urine RBC 3-6 A /HPF
(0-2)
Urine WBC (Reflex) 11-15 A /HPF
(0-5)
Urine Bacteria (Reflex) Many A
(Negative)
Urine Glucose 3+ A
(Negative)
03/12/24 00:56
03/12/24 00:56
Vital Signs
Initial and Last Documented VS:
Initial Vital Signs
Temp Pulse Resp BP Pulse Ox
101.0 F H 92 20 94/62 98
03/12/24 00:19 03/12/24 00:19 03/12/24 00:19 03/12/24 00:19 03/12/24 00:19
Last Documented Vital Signs
Temp Pulse Resp BP Pulse Ox
101.0 F H 92 20 101/62 98
03/12/24 00:19 03/12/24 00:19 03/12/24 00:19 03/12/24 01:22 03/12/24 00:19
MDM/Problems Addressed
MDM/Problems Addressed:
Urinary tract infection
*Pulse Oximetry
Patient hypoxic: no
*Critical Care Note
Total Time (30-74mins, 75-104mins- exclusive of procedures): Not Applicable
Data Reviewed
Review of Other/Old Records Reveals: Labs (Prior cultures revealed Klebsiella)
Source: patient and spouse
Further Testing Considered But Not Given:
Consider blood cultures but low suspicion for bacteremia
Patient Management
Escalation/DeEscalation of care consider admission/obs:
Suspect UTI as etiology for his rigors and fever. Patient is well-appearing and feels well. I think it is reasonable to treat as an outpatient. Prior cultures were reviewed revealing Klebsiella. Treat with antibiotics. Given IV Rocephin and
will treat with cephalosporin as outpatient
ED Attending Note
-
Portions of this chart may have been created with voice recognition software.� Occasional wrong word or��sound alike� substitutions may have occurred due to the inherent limitations of voice recognition software.
Discharge Plan
Departure
Patient Disposition: Home (Routine Discharge)
Date of Disposition: 03/12/24
Time of Disposition: 02:10
Patient with high blood pressure during this ER visit?: No
Discharge Problem:
Urinary tract infection
Instructions: Fever, Adult (DC), Urinary Tract Infection, Adult ED
Prescriptions:
New
cefuroxime axetil 500 mg tablet
500 mg PO BID Qty: 14 0RF
No Action
metformin 500 mg Tablet
500 mg PO BIDWMEAL
acetaminophen 325 mg Tablet
650 mg PO Q6HPRN PRN (Reason: mild pain,headache,temp >101F ) Qty: 0 0RF
nitrofurantoin monohyd/m-cryst 100 mg Capsule
100 mg PO BID Qty: 3 0RF
Rx Instructions:
finish Rx for total of 5 day course
amiodarone [Pacerone] 200 mg Tablet
200 mg PO BID Qty: 90 0RF
Rx Instructions:
Take twice daily for 2 weeks (until 01/24), then once daily until otherwise directed
clopidogrel 75 mg Tablet
75 mg PO DAILY Qty: 30 1RF
amlodipine 2.5 mg Tablet
2.5 mg PO DAILY Qty: 30 1RF
atorvastatin 40 mg Tablet
40 mg PO HS Qty: 30 1RF
sennosides-docusate sodium [Stool Softener-Stimulant Laxat] 8.6-50 mg Tablet
1 tab PO Q12 PRN (Reason: Constipation) Qty: 0 0RF
aspirin [Children's Aspirin] 81 mg Tablet,Chewable
81 mg PO DAILY Qty: 30 1RF
metoprolol tartrate 25 mg Tablet
37.5 mg PO Q12 Qty: 90 1RF
dapagliflozin propanediol 10 mg Tablet
10 mg PO DAILY Qty: 30 1RF
cyclobenzaprine 10 mg Tablet
5 mg PO Q8HPRN PRN (Reason: muscle spasm) Qty: 14 0RF
tamsulosin 0.4 mg Capsule
0.4 mg PO DAILY Qty: 30 1RF
Referrals:
Pauline Rangel PA-C [Family Provider] -
Activity Restrictions/Additional Instructions:
Please drink plenty fluids. Use Tylenol for fever control. Please see your doctor in the next 3 days for follow-up and reevaluation. Return immediately for vomiting, fevers that persist, abdominal pain, changes in mentation, weakness or any other
concerns.
Interventions
Interventions:
*Risk Screen - Suicide Last Done: 03/12/24 00:19
*General Assessment Last Done: 03/12/24 00:19
*Neglect/Abuse Screening Last Done: 03/12/24 00:19
ED- Fall Risk Assessment Last Done: 03/12/24 00:19
*ED COVID-19 Vaccine History Last Done: 03/12/24 00:19
Discharge Date and Time
Print Language: JAMA[place]
[2024-03-12 01:48] LABS: Lactic Acid 0.9 mmol/L (0.7-2.0)
[2024-03-12 02:00] VITALS: BP 95/56
[2024-03-12] MEDS: ROCEPHIN 2000 MG IV (02:05)
[2024-03-12 02:10] LABS: Lactic Acid 0.6 mmol/L (0.7-2.0)
== END 2024-03-12 02:40 | disposition home or self-care (01) ==
LOC: EMR 00:09
PROVIDERS: Student in an Organized Health Care Education/Training Program; EMERGENCY PHYSICIAN Emergency Medicine; FAMILY PHYSICIAN Student in an Organized Health Care Education/Training Program
DX: N39.0 Urinary tract infection, site not specified (principal); R25.1 Tremor, unspecified; I48.91 Unspecified atrial fibrillation; I25.10 Atherosclerotic heart disease of native coronary artery without angina pectoris; I10 Essential (primary) hypertension; E78.00 Pure hypercholesterolemia, unspecified; E11.9 Type 2 diabetes mellitus without complications; N40.0 Benign prostatic hyperplasia without lower urinary tract symptoms
CPT/HCPCS: 99283; 96374; 80053; 81003; 81015; 83605; 85025; 87077; 87086; 87186; 93005

== ENCOUNTER 2024-03-30 10:54 | Outpatient (RCR) | payer MEDICARE, OTHER, SELFPAY ==
[2024-03-02 10:32] LABS: Glucose - Point of Care 110 mg/dl (70-99)
[2024-03-02 11:24] LABS: Glucose - Point of Care 86 mg/dl (70-99)
[2024-03-09 10:25] LABS: Glucose - Point of Care 93 mg/dl (70-99)
[2024-03-09 11:27] LABS: Glucose - Point of Care 96 mg/dl (70-99)
[2024-03-11 10:26] LABS: Glucose - Point of Care 86 mg/dl (70-99)
[2024-03-11 11:22] LABS: Glucose - Point of Care 99 mg/dl (70-99)
[2024-03-16 10:39] LABS: Glucose - Point of Care 99 mg/dl (70-99)
[2024-03-16 11:37] LABS: Glucose - Point of Care 100 mg/dl (70-99)
== END 2024-03-30 23:59 | disposition home or self-care (01) ==
LOC: CRHB 10:54
PROVIDERS: ATTENDING PHYSICIAN Internal Medicine
DX: I25.10 Atherosclerotic heart disease of native coronary artery without angina pectoris (principal); Z95.1 Presence of aortocoronary bypass graft
CPT/HCPCS: 82962; G0422; G0423

== ENCOUNTER → 2024-04-02 08:09 | Outpatient (REF) | payer MEDICARE, OTHER, SELFPAY | LOC: HWRCS 08:09 | PROVIDERS: ATTENDING PHYSICIAN Nurse Practitioner; FAMILY PHYSICIAN Student in an Organized Health Care Education/Training Program | DX: I25.110 Atherosclerotic heart disease of native coronary artery with unstable angina pectoris (principal); R94.31 Abnormal electrocardiogram [ECG] [EKG]; E78.00 Pure hypercholesterolemia, unspecified | CPT/HCPCS: 93306 ==

== ENCOUNTER 2024-04-29 10:04 | Outpatient (RCR) | payer MEDICARE, OTHER, SELFPAY | END 2024-04-29 23:59 | disposition home or self-care (01) | LOC: CRHB 10:04 | PROVIDERS: ATTENDING PHYSICIAN Internal Medicine | DX: I25.10 Atherosclerotic heart disease of native coronary artery without angina pectoris (principal); Z95.1 Presence of aortocoronary bypass graft | CPT/HCPCS: G0422; G0423 ==

== ENCOUNTER 2024-05-27 10:39 | Outpatient (RCR) | payer MEDICARE, OTHER, SELFPAY | END 2024-05-27 23:59 | disposition home or self-care (01) | LOC: CRHB 10:39 | PROVIDERS: ATTENDING PHYSICIAN Internal Medicine | DX: I25.10 Atherosclerotic heart disease of native coronary artery without angina pectoris (principal); Z95.1 Presence of aortocoronary bypass graft | CPT/HCPCS: G0422; G0423 ==

== ENCOUNTER 2024-06-24 11:19 | Outpatient (RCR) | payer MEDICARE, OTHER, SELFPAY | END 2024-06-24 12:32 | disposition home or self-care (01) | LOC: CRHB 11:19 | PROVIDERS: ATTENDING PHYSICIAN Internal Medicine | DX: I25.10 Atherosclerotic heart disease of native coronary artery without angina pectoris (principal); Z95.1 Presence of aortocoronary bypass graft | CPT/HCPCS: G0422; G0423 ==

== ENCOUNTER → 2025-07-27 10:07 | Outpatient (REF) | payer MEDICARE, OTHER, SELFPAY | LOC: HWRCS 10:07 | PROVIDERS: ATTENDING PHYSICIAN Internal Medicine; FAMILY PHYSICIAN Student in an Organized Health Care Education/Training Program | DX: I25.810 Atherosclerosis of coronary artery bypass graft(s) without angina pectoris (principal); I77.810 Thoracic aortic ectasia | CPT/HCPCS: 93306 ==